=== PATIENT | female | born 2005 | race Two or more races ===

== ENCOUNTER 2024-05-22 03:03 | Emergency (ER) | payer MEDICAID, OTHER ==
[~2024-05-22] VITALS: Ht 149.9 cm; Wt 71.2 kg
[2024-05-22 04:15] VITALS: BP 124/77; PULSE 86; RESP 18; TEMP 98.3; O2SAT 100
[2024-05-22] MEDS ORDERED: PER60TP TOP (04:19)
--- NOTE | 2024-05-22 04:19 | ED.PDOC ---
History of Present Illness(SKN HPI Comments 19 year old female presents to ER with complaints of rash x 1 day. Patient reports she started developing a red itchy rash to lower posterior scalp one day ago. Notes she was around a patient at work 2 days ago who tested positive for scabies but reports she was wearing proper PPE at that time. Denies any pain and denies use of medications for current symptoms. 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 Pertinent MACHINE OPERATOR HELPER History Family History Family History: Unknown Social History Smoker: Non-Smoker Alcohol: Denies ETOH Use Drugs: Denies Drug Use Lives In: Home Constitutional: denies: chills, diaphoresis, fatigue, fever, malaise, sweats, weakness, others EENTM: denies: blurred vision, double vision, ear bleeding, ear discharge, ear drainage, ear pain, ear ringing, eye pain, eye redness, hearing loss, mouth pain, mouth swelling, nasal discharge, nose bleeding, nose congestion, nose pain, photophobia, tearing, throat pain, throat swelling, voice changes, others Respiratory: denies: cough, hemoptysis, orthopnea, SOB at rest, shortness of breath, SOB with excertion, stridor, wheezing, others Cardiovascular: denies: chest pain, dizzy spells, diaphoresis, Dyspnea on exertion, edema, irregular heart beat, left arm pain, lightheadedness, palpitations, PND, syncope, others Gastrointestinal: denies: abdomen distended, abdominal pain, blood streaked bowels, constipated, diarrhea, dysphagia, difficulty swallowing, hematemesis, melena, nausea, poor appetite, poor fluid intake, rectal bleeding, rectal pain, vomiting, others Genitourinary: denies: abnormal vagina bleeding, burning, dyspareunia, dysuria, flank pain, frequency, hematuria, incontinence, pain, , vagina dis charge, urgency, others Neurological: denies: dizziness, fainting, headache, left sided numbness, left sided weakness, numbness, paresthesia, pre-existing deficit, right sided numbness, right sided weakness, seizure, speech problems, tingling, tremors, weakness, others Musculoskeletal: denies: back pain, gout, joint pain, joint swelling, muscle pain, muscle stiffness, neck pain, others Integumetry: reports: others ( STATED IN HPI) Allergic/Immunocompromised: denies: Difficulty Healing, Frequent Infections, Hives, Itching, others Hematologic/Lymphatic: denies: anemia, blood clots, easy bleeding, easy bruising, swollen glands, others Endocrine: denies: excessive hunger, excessive sweating, excessive thirst, excessive urination, flushing, intolerance to cold, intolerance to heat, unexplained weight gain, unexplained weight loss, others Psychiatric: denies: anxiety, bipolar disorder, depression, hopeless, panic disorder, schizophrenia, sleepless, suicidal, others Physical Exam General Appearance: No Apparent Distress, Obese HEENT: PERRL/EOMI Neck: Full Range of Motion, Non-Tender, Normal Respiratory: Chest Non-Tender, Lungs Clear, No Accessory Muscle Use, No Respiratory Distress, Normal Breath Sounds Cardiovascular: No Murmur, No Gallop, Regular Rate/Rhythm Breast Exam: Deferred Gastrointestinal: NOT DONE Genitalia: Deferred Pelvic: Deferred Rectal: Deferred Extremities: Normal capillary refill, Normal range of motion Neurologic: Alert, oncology account specialist II-XII nml as Tested, No Motor Deficits, Normal Affect, Normal Mood, No Sensory Deficits Cerebellar Function: Normal Reflexes: Normal Skin: Dry, Warm, Other (MILD INFLAMMATION/ERYTHEMA NOTED TO RIGHT LOWER EARLIER SCALP. NO CRUSTING/PAPULES/PUSTULES/SCALING/LINEAR BURROWS/DRAINAGE NOTED) Lymphatic: No Adenopathy Was a procedure done? Was a procedure done?: No Sedation Sedation?: No Differential Diagnosis (INTG) Differential Diagnosis: Abrasion Differential Diagnosis: Other (IMPETIGO, ATOPIC DERMATITIS, INSECT BITE, LICE, SCABIES) X-Ray, Labs, Meds, VS Vital Signs Date Time Temp Pulse Resp B/P (MAP) Pulse Ox O2 Delivery O2 Flow Rate FiO2 05/22/24 04:15 86 18 100 Room Air 05/22/24 04:15 98.3 86 18 124/77 (93) 100 98.3 05/22/24 03:35 98.3 86 18 124/77 (93) 100 PERMETHRIN ORDERED. PATIENT EDUCATED ON PROPER USE/DOSAGE ADVISED TO FOLLOW UP WITH PCP AND CAN FILLING MACHINE OPERATOR IN 1-2 DAYS PATIENT VERBALIZED UNDERSTANDING AND AGREEABLE WITH CURRENT PLAN OF CARE ADVISED TO RETURN TO ER IMMEDIATELY IF SYMPTOMS WORSEN Time of 1ST Reevaluation: 03:54 Reevaluation 1ST: N/A Patient Education/Counseling: Diagnosis, Treatment, Prognosis, Need For Follow Up Family Education/Counseling: No Family Present Departure 1 Departure Time of Disposition: 04:14 Impression: Primary Impression: Exposure to scabies Disposition: 01 HOME / SELF CARE / HOMELESS Condition: Stable e-Prescriptions Permethrin (Elimite) 5 % Cre 1 APPLIC TOP ONCE, #1 CRE 0 Refills Prov: MIKE GREENBERG 05/22/24 Discharged With: Self Critical Care Note Critical Care Time?: No Stability Stability form required: No Heart Score Heart Score: Heart Score Response (Comments) Value History N/A 0 EKG N/A 0 Age N/A 0 Risk Factors N/A 0 Troponin N/A 0 Total 0 MIKE GREENBERG May 22, 2024 04:19
[2024-05-22] MEDS: PERMETHRIN 5 % TOPICAL CREAM 60GM TOP ONE (04:39)
== END 2024-05-22 04:37 | disposition home or self-care (01) ==
LOC: ER 03:03 → EEVIPCON 03:03 → ER 04:37
DX: B86 Scabies (principal); Z88.0 Allergy status to penicillin

== ENCOUNTER 2024-10-05 03:12 | Emergency (ER) | payer BC, OTHER ==
[~2024-10-05] VITALS: Ht 147.3 cm; Wt 70.5 kg
[~2024-10-05 03:12] MED LIST: PER60TP TOP
--- NOTE | 2024-10-05 03:41 | ED.PDOC ---
HPI Comments 19-year-old female who came to ER for chest pains. Patient denies any medical problems. For the past week she has been having intermittent episodes of diffuse chest pains, intermittent, pressure type, nonradiating, associated with nausea, dizziness, and shortness of breath. Patient was seen at urgent care 3 days ago, diagnosed with anxiety. However persistence of chest pains prompted patient come to the ER Chief Complaint: Chest Pain Time Seen by MD: 03:39 Reviewed Notes: Nurses Notes Allergies: Coded Allergies: Penicillins (Verified Allergy, Unknown, 10/05/24) Home Meds Active Scripts Cephalexin Monohydrate (Cephalexin) 500 Mg Cap, 1 CAP PO QID for 10 Days, #40 CAP Prov:JUAN BARNETT MD 10/05/24 Hydroxyzine HCl (Hydroxyzine Hydrochloride) 50 Mg Tab, 50 MG PO Q6HP PRN, #30 TAB prn anxiety Prov:JUAN BARNETT MD 10/05/24 Ibuprofen Micronized (Ibuprofen) 600 Mg Tab, 600 MG PO Q6HP PRN, #30 TAB Prov:JUAN BARNETT MD 10/05/24 Information Source: Patient Mode of Arrival: Ambulatory Severity: Moderate Timing: Days Duration: Intermittent Prehospital treatment: None Location: Chest (R), Chest (L) Radiation: No Radiation Quality: Pressure Onset: With Light Exertion Cardiac Risk Factors: None PE Risk Factors: None History of: None Associated Signs and Symptoms: SOB, Other (Dizziness) Past Medical History PAST MEDICAL HISTORY: Denies Surgical History: HAND COLLATOR History: Denies all HAND COLLATOR Hx Family History Family History: Reviewed,noncontributory to illness Social History Smoker: Non-Smoker Alcohol: Denies ETOH Use Drugs: Denies Drug Use Lives In: Home Constitutional: denies: chills, diaphoresis, fatigue, fever, malaise, sweats, weakness, others EENTM: denies: blurred vision, double vision, ear bleeding, ear discharge, ear drainage, ear pain, ear ringing, eye pain, eye redness, hearing loss, mouth pain, mouth swelling, nasal discharge, nose bleeding, nose congestion, nose pain, photophobia, tearing, throat pain, throat swelling, voice changes, others Respiratory: reports: SOB at rest, shortness of breath; denies: cough, hemoptysis, orthopnea, SOB with excertion, stridor, wheezing, others Cardiovascular: reports: chest pain, dizzy spells; denies: diaphoresis, Dyspnea on exertion, edema, irregular heart beat, left arm pain, lightheadedness, palpitations, PND, syncope, others Gastrointestinal: denies: abdomen distended, abdominal pain, blood streaked bowels, constipated, diarrhea, dysphagia, difficulty swallowing, hematemesis, melena, nausea, poor appetite, poor fluid intake, rectal bleeding, rectal pain, vomiting, others Genitourinary: denies: abnormal vagina bleeding, burning, dyspareunia, dysuria, flank pain, frequency, hematuria, incontinence, pain, , vagina discharge, urgency, others Neurological: denies: dizziness, fainting, headache, left sided numbness, left sided weakness, numbness, paresthesia, pre-existing deficit, right sided numbness, right sided weakness, seizure, speech problems, tingling, tremors, weakness, others Musculoskeletal: denies: back pain, gout, joint pain, joint swelling, muscle pain, muscle stiffness, neck pain, others Integumetry: denies: bruises, change in color, change in hair/nails, dryness, laceration, lesions, lumps, rash, wounds, others Allergic/Immunocompromised: denies: Difficulty Healing, Frequent Infections, Hives, Itching, others Hematologic/Lymphatic: denies: anemia, blood clots, easy bleeding, easy bruising, swollen glands, others Endocrine: denies: excessive hunger, excessive sweating, excessive thirst, excessive urination, flushing, intolerance to cold, intolerance to heat, unexplained weight gain, unexplained weight loss, others Psychiatric: denies: anxiety, bipolar disorder, depression, hopeless, panic disorder, schizophrenia, sleepless, suicidal, others Physical Exam General Appearance: No Apparent Distress HEENT: Other (Pupils and face symmetric. Moist mucous membranes.) Neck: Full Range of Motion, Normal Inspection Respiratory: Lungs Clear, No Accessory Muscle Use, No Respiratory Distress, No rmal Breath Sounds Cardiovascular: No Edema, No JVD, Tachycardia Breast Exam: Deferred Gastrointestinal: Non Tender, Soft Genitalia: Deferred Pelvic: Deferred Rectal: Deferred Extremities: Normal inspection, Normal range of motion, Non-tender, No pedal edema Neurologic: Alert (Oriented x4), Normal Affect, Other (Ambulatory) Cerebellar Function: NOT DONE Reflexes: NOT DONE Skin: Dry, Normal Color, Warm Lymphatic: NOT DONE EKG EKG : Pulse Rate (adult): 121 [place]: LAD Cardiac Rhythm: ST Hypertrophy: LAE Comments Sinus tach, rate 121, normal intervals, borderline left axis deviation, normal QRS, nonspecific T change. Was a procedure done? Was a procedure done?: No CP Differential Dx Differential Diagnosis: Angina, Anxiety / Panic Attack, [place], Pulmonary Embolus Differential Diagnosis: CHF Differential Diagnosis: Angina, Chest Wall Pain, Costochondritis, Esophageal reflux/spasm, Gastritis, Myocardial Infarction, Pericarditis, Pneumonia X-Ray, Labs, Meds, VS Vital Signs Date Time Temp Pulse Resp B/P (MAP) Pulse Ox O2 Delivery O2 Flow Rate FiO2 10/05/24 04:13 Room Air* 0 21 10/05/24 04:12 98.3 107 16 120/80 (93) 99 98.3 10/05/24 03:41 121 10/05/24 03:29 98.4 107 16 121/76 (91) 96 98.4 Lab Test 10/05/24 04:20 10/05/24 04:01 10/05/24 03:17 10/05/24 00:31 Range/Units Urine Color Yellow Yellow Urine Clarity Clear Clear Urine pH 5.5 5.0-9.0 Urine Specific [place] 1.031 1.001-1.035 Urine Protein Negative Negative Urine Ketones 2+ H Negative Urine Blood Trace H Negative /uL Urine Nitrite Negative Negative Urine Bilirubin Negative Negative Urine Urobilinogen Normal Negative mg/dL Urine Leukocyte Esterase Negative Negative /uL Urine RBC 3 0 - 4 /hpf Urine Microscopic WBC 2 0-5 /HPF Urine Squamous Epithelial Cells Few <5 /hpf Urine Bacteria Few H None Seen /hpf Urine Mucus Few None Seen Urine Glucose Normal Normal mg/dL Urine Test Negative Negative Troponin I High Sensitivity < 3 L < 3 L </=34 ng/L White Blood Count 11.8 H 4.4-10.8 10^3/uL Red Blood Count 4.88 4.0-5.20 10^6/uL Hemoglobin 14.1 12.2-16.2 g/dL Hematocrit 41.9 36.0-46.0 % Mean Corpuscular Volume 86.0 80.0-100.0 fL Mean Corpuscular Hemoglobin 29.0 28.0-32.0 pg Mean Corpuscular Hemoglobin Concent 33.7 32.0-36.0 g/dL Red Cell Distribution Width 13.2 11.8-14.3 % Platelet Count 372 140-450 10^3/uL Mean Platelet Volume 7.5 6.9-10.8 fL Neutrophils (%) (Auto) 61.2 37.0-80.0 % Lymphocytes (%) (Auto) 30.9 10.0-50.0 % Monocytes (%) (Auto) 5.9 0.0-12.0 % Eosinophils (%) (Auto) 1.7 0.0-7.0 % Basophils (%) (Auto) 0.3 0.0-2.0 % Neutrophils # (Auto) 7.2 1.6-8.6 10 ^3/uL Lymphocytes # (Auto) 3.6 0.4-5.4 10 ^3/uL Monocytes # (Auto) 0.7 0-1.3 10 ^3/uL Eosinophils # (Auto) 0.2 0-0.8 10 ^3/uL Basophils # (Auto) 0 0-0.2 10 ^3/uL Nucleated Red Blood Cells 0.1 % Sodium Level 139 136-145 mmol/L Potassium Level 3.8 3.5-5.1 mmol/L Chloride Level 102 98-107 mmol/L Carbon Dioxide Level 26 20-31 mmol/L Anion Gap 11 5-15 Blood Urea Nitrogen 11 9-23 mg/dL Creatinine 0.75 0.550-1.02 mg/dL Glomerular Filtration Rate Calc 116 >90 mL/min BUN/Creatinine Ratio 14.7 10.0-20.0 Serum Glucose 105 74-106 mg/dL Calcium Level 10.9 H 8.7-10.4 mg/dL B-Type Natriuretic Peptide 2.62 0-100 pg/mL Prothrombin Time 10.7 9.3-11.8 sec Prothrombin Time INR 1.01 0.9-1.15 Activated Partial Thromboplast Time 29.9 24.5-34.5 SEC D-Dimer, Quantitative < 0.19 0.0-0.49 mg/L FEU Current Medications Medications (Trade) Dose Ordered Sig/Piter Route Start Time Stop Time Status Last Admin Sodium Chloride 1,000 ml @ 1,000 mls/hr Q1H ONCE IV 6/27/25 03:45 10/05/24 04:44 DC 10/05/24 04:09 Lorazepam (Ativan Tablet) 0.5 mg ONCE ONCE PO 10/05/24 04:45 10/05/24 04:46 DC 10/05/24 04:50 Ketorolac Tromethamine (Toradol Injection) 30 mg ONCE ONCE IV 10/05/24 04:45 10/05/24 04:46 DC 10/05/24 04:50 EXAM: XY CHEST PORTABLE Indication: cp Technique: Single frontal view of the chest was obtained Comparison: None FINDINGS: Lines and Tubes: None Lungs: No focal consolidation. Pleura: No effusion. No pneumothorax. Cardiomediastinal contours: Unremarkable Bones: No acute osseous abnormality. IMPRESSION: No acute cardiopulmonary disease. X-Ray, Labs, Meds, VS Comment 19-year-old female with no significant past medical history complaining of chest pain Vitals remarkable for heart rate 107 Exam remarkable for tachycardia Rhythm strip independently interpreted by me: Sinus tach, rate 121, no ectopy. Chest x-ray unremarkable CBC, metabolic panel, D-dimer, BNP and 2 serial troponins unremarkable. UA abnormal consistent with possible UTI Patient treated with the following in the ED: 1 L 0.9 normal saline IV bolus, Toradol 30 mg IV, Ativan 0.5 mg p.o. , Rocephin 1 g IV On re-evaluation, patient states symptoms have improved. Vitals were stable, an d tachycardia has resolved. Hospitalization was considered, however patient had rapid improvement of symptoms with treatment in the ED, and I no longer feel hospitalization is necessary. Patient now appears stable for discharge with close outpatient follo w-up with her primary physician. Rx ibuprofen, hydroxyzine, Keflex Time of 1ST Reevaluation: 03:36 Reevaluation 1ST: Unchanged Patient Education/Counseling: Diagnosis, Treatment Family Education/Counseling: Need For Follow Up SEPSIS Sepsis Screen Physician Orders Electrocardigram (10/05/24 03:14) Troponin-I Hs (10/05/24 06:14) Chest Portable (10/05/24 03:45) Vital Signs Date Time Temp Pulse Resp B/P (MAP) Pulse Ox O2 Delivery O2 Flow Rate FiO2 10/05/24 04:13 Room Air* 0 21 10/05/24 04:12 98.3 107 16 120/80 (93) 99 98.3 10/05/24 03:41 121 10/05/24 03:29 98.4 107 16 121/76 (91) 96 98.4 Laboratory Tests Test 10/05/24 03:17 White Blood Count 11.8 10^3/uL (4.4-10.8) H Medications Medications Dose Ordered Sig/Piter Route Start Time Stop Time Status Last Admin Dose Admin Ketorolac Tromethamine 30 mg ONCE ONCE IV 10/05/24 04:45 10/05/24 04:46 DC 10/05/24 04:50 Lorazepam 0.5 mg ONCE ONCE PO 10/05/24 04:45 10/05/24 04:46 DC 10/05/24 04:50 Sodium Chloride 1,000 ml @ 1,000 mls/hr Q1H ONCE IV 10/05/24 03:45 10/05/24 04:44 DC 10/05/24 04:09 Departure 1 Departure Time of Disposition: 05:26 Impression: Primary Impression: Chest pain with low risk for cardiac etiology Additional Impression: UTI (urinary tract infection) Disposition: HOME / SELF CARE / HOMELESS Condition: Stable Additional Instructions: Your blood tests, including screening test for heart attack, heart failure and blood clots, were unremarkable. Your urine test was abnormal, possibly reflecting a urinary tract infection. Your chest x-ray was normal. I have prescribed medication for your chest pain symptoms and antibiotics for your UTI. Follow-up with your primary doctor in 1-2 days for further evaluation of your chest pain. e-Prescriptions Cephalexin Monohydrate (Cephalexin) 500 Mg Cap 1 CAP PO QID for 10 Days, #40 CAP Prov: JUAN BARNETT MD 10/05/24 Hydroxyzine HCl (Hydroxyzine Hydrochloride) 50 Mg Tab 50 MG PO Q6HP PRN, #30 TAB prn anxiety Prov: JUAN BARNETT MD 10/05/24 Ibuprofen Micronized (Ibuprofen) 600 Mg Tab 600 MG PO Q6HP PRN, #30 TAB Prov: JUAN BARNETT MD 10/05/24 Discharged With: Friend Critical Care Note Critical Care Time?: No Stability Stability form required: No Heart Score Heart Score: Heart Score Response (Comments) Value History Slightly Suspicious 0 EKG Repolarization Disturb 1 Age <45 0 Risk Factors No known risk factors 0 Troponin Normal limit 0 Total 1 I personally scribed for JUAN BARNETT MD ([facility]) on 10/05/24 at 03:41. Electronically submitted by Abdias Greer ([facility]). I personally scribed for JUAN BARNETT MD ([facility]) on 10/05/24 at 05:10. Electronically submitted by Abdias Greer ([facility]). JUAN BARNETT MD Oct 05, 2024 03:41
[2024-10-05] MEDS: SODIUM CHLORIDE 0.9% 1,000 ML IV ONE (04:09)
[2024-10-05 04:12] VITALS: BP 120/80; PULSE 107; RESP 16; TEMP 98.3; O2SAT 99
[2024-10-05 04:12] LABS: Basophils # (auto) 0 10 ^3/uL (0-0.2); Basophils % (auto) 0.3 % (0.0-2.0); Eosinophils # (auto) 0.2 10 ^3/uL (0-0.8); Eosinophils % (auto) 1.7 % (0.0-7.0); Hematocrit 41.9 % (36.0-46.0); Hemoglobin 14.1 g/dL (12.2-16.2); Lymphocytes # (auto) 3.6 10 ^3/uL (0.4-5.4); Lymphocytes % (auto) 30.9 % (10.0-50.0); Mean Corpuscular Hgb Conc. 33.7 g/dL (32.0-36.0); Monocytes # (auto) 0.7 10 ^3/uL (0-1.3); Monocytes % (auto) 5.9 % (0.0-12.0); Neutrophils # (auto) 7.2 10 ^3/uL (1.6-8.6); Neutrophils % (auto) 61.2 % (37.0-80.0); Nucleated Red Blood Cells % 0.1 %; Platelet Count (auto) 372 10^3/uL (140-450); Red Blood Cells 4.88 10^6/uL (4.0-5.20); Red Cell Distribution Width 13.2 % (11.8-14.3); White Blood Cell 11.8 10^3/uL (4.4-10.8)
[2024-10-05 04:24] LABS: Chloride 102 mmol/L (98-107); Potassium 3.8 mmol/L (3.5-5.1); Sodium 139 mmol/L (136-145)
[2024-10-05 04:25] LABS: Anion Gap 11 (5-15); Carbon Dioxide 26 mmol/L (20-31)
[2024-10-05 04:27] LABS: Calcium 10.9 mg/dL (8.7-10.4)
[2024-10-05 04:30] LABS: BUN/Creatinine Ratio 14.7 (10.0-20.0); Blood Urea Nitrogen 11 mg/dL (9-23); Glucose 105 mg/dL (74-106)
[2024-10-05 04:38] LABS: INR 1.01 (0.9-1.15); Partial Thromboplastin Time 29.9 SEC (24.5-34.5); Prothrombin Time 10.7 sec (9.3-11.8)
[2024-10-05] MEDS ORDERED: KETOROLAC TROMETH 60MG/2ML VIAL IM ONE (04:45)
[2024-10-05] MEDS: KETOROLAC TROMETH 30 MG/ML 1ML VIAL IV ONE (04:50)
[2024-10-05] MEDS: LORazepam 0.5 MG TAB PO ONE (04:50)
[2024-10-05 04:53] LABS: Urine Bacteria FEW /hpf (None Seen); Urine Blood TRACE /uL (Negative); Urine Clarity Clear (Clear); Urine Color Yellow (Yellow); Urine Mucus FEW (None Seen); Urine Protein, UAD Negative (Negative); Urine Specific Gravity 1.031 (1.001-1.035); Urine Squamous Epithelial Cell FEW /hpf (<5); Urine Urobilinogen Normal (Negative); Urine WBC 2 /HPF (0-5); Urine pH 5.5 (5.0-9.0)
[2024-10-05] MEDS ORDERED: IBUP1TAB5 PO (04:55)
[2024-10-05] MEDS ORDERED: HYDR50TA32 PO (04:55)
--- NOTE | 2024-10-05 04:58 | DVH ---
EXAM: XY CHEST PORTABLE Indication: cp Technique: Single frontal view of the chest was obtained Comparison: None FINDINGS: Lines and Tubes: None Lungs: No focal consolidation. Pleura: No effusion. No pneumothorax. Cardiomediastinal contours: Unremarkable Bones: No acute osseous abnormality. IMPRESSION: No acute cardiopulmonary disease.
[2024-10-05] MEDS ORDERED: CEPH500C PO (05:27)
[2024-10-05] MEDS ORDERED: cefTRIAXone 1GM/50ML D5W 50 ML IV ONE (05:30)
--- NOTE | 2024-10-06 11:04 | ECG ---
[facility] Test Date: 2024-10-05 Test Time: 03:19:05 Pat Name: MAGDALENA QUINONES Department: ER Room: Gender: F Vegetable Grower: : 2005 Requested By: JUAN LATHAM Order Number: [id number] Reading MD: Ronni Yu Measurements Intervals [place] Rate: 121 P: 64 MI: 171 QRS: -26 QRSD: 83 T: -5 QT: 327 QTc: 464 Interpretive Statements Sinus tachycardia Probable left atrial enlargement Borderline left axis deviation Borderline T abnormalities, diffuse leads Electronically Signed On 10-06-2024 20:11:30 PDT by Ronni Yu Please click the below link to view image of tracing.
== END 2024-10-05 05:40 | disposition home or self-care (01) ==
LOC: MERGE 03:12 → ER 03:12
DX: N39.0 Urinary tract infection, site not specified (principal); R07.89 Other chest pain; Z98.890 Other specified postprocedural states; Z88.0 Allergy status to penicillin; Z79.899 Other long term (current) drug therapy
CPT/HCPCS: 36415; 71045; 80048; 81001; 81025; 83880; 84484; 85025; 85379; 85610; 85730; 93005; 96361; 96374; 99285; J1885; J7030

== ENCOUNTER 2024-10-31 15:17 | Outpatient (CLI) | payer BC ==
[~2024-10-31 15:17] MED LIST changes: +CEPH500C PO; +HYDR50TA32 PO; +IBUP1TAB5 PO
[2024-10-31 15:31] LABS: Urine Protein, UAD Negative (Negative)
[2024-11-01 22:07] LABS: Chlamydia Trachomatis, NAA Negative (Negative); Neisseria gonorrhoeae, NAA Negative (Negative)
== END 2024-10-31 17:00 | disposition home or self-care (01) ==
LOC: LAB 15:17
DX: N39.0 Urinary tract infection, site not specified (principal)
CPT/HCPCS: 81001; 87086

== ENCOUNTER 2024-12-20 06:37 | Emergency (ER) | payer SELFPAY ==
[~2024-12-20] VITALS: Ht 147.3 cm; Wt 72.1 kg
[2024-12-20] MEDS ORDERED: TRIA0.02 TOP (07:40)
[2024-12-20] MEDS ORDERED: CEPH500C PO (07:40)
--- NOTE | 2024-12-20 07:41 | ED.PDOC ---
History of Present Illness(SKN HPI Comments A 19 YEAR OLD FEMALE PRESENTS TO THE ED WITH COMPLAINT OF INSECT BITE OF RIGHT FOREARM. PATIENT STATES SHE HAS BEEN DENIED [place] ON HER RIGHT FOREARM AND IS NOW EXPERIENCING REDNESS AND PAIN TO THE AREA. PATIENT DENIES FEVER, CHILLS, SHORTNESS OF BREATH, CHEST PAIN, ABDOMINAL PAIN, NAUSEA, VOMITING, HEADACHE, OR OTHER COMPLAINTS. NO OTHER SYMPTOMS OR MODIFYING FACTORS AT THIS TIME. PATIENT IS ALERT, ORIENTED X 4, AND HAS STEADY GAIT. Chief Complaint: Insect Bite Time Seen by MD: 07:19 Primary Care Provider: UNKNOWN History of Present Illness: Nurses Notes, Medications, Allergies Allergies: Coded Allergies: Penicillins (Verified Allergy, Unknown, 05/22/24) Home Meds Active Scripts Triamcinolone Acetonide (Triamcinolone Acetonide) 0.025 % Cre, 1 APPLIC TOP BID, #30 GRAMS Prov:BRITTANY WARD 12/20/24 Cephalexin Monohydrate (Cephalexin) 500 Mg Cap, 1 CAP PO QID, #32 CAP Prov:BRITTANY WARD 12/20/24 Cephalexin Monohydrate (Cephalexin) 500 Mg Cap, 1 CAP PO QID for 10 Days, #40 CAP Prov:JUAN BARNETT MD 10/05/24 Hydroxyzine HCl (Hydroxyzine Hydrochloride) 50 Mg Tab, 50 MG PO Q6HP PRN, #30 TAB prn anxiety Prov:JUAN BARNETT MD 10/05/24 Ibuprofen Micronized (Ibuprofen) 600 Mg Tab, 600 MG PO Q6HP PRN, #30 TAB Prov:JUAN BARNETT MD 10/05/24 Permethrin (Elimite) 5 % Cre, 1 APPLIC TOP ONCE, #1 CRE 0 Refills Prov:MIKE GREENBERG 05/22/24 Information Source: Patient Mode of Arrival: Ambulatory Severity: Mild, Moderate Timing: Days Duration: Since onset, Days Prehospital treatment: None Location: Arm (RIGHT FOREARM) Mechanism: Insect Developed: Rash Occurence: Outdoors Object: None Condition of Object: None Retained Foreign Body: No Wound Type: Other (INSECT BITE) Immunization Status of Animal: NA Tetanus: UTD History of: None Associated Signs and Symptoms: Redness, Swelling, Pain Past Medical History PAST MEDICAL HISTORY: Denies Surgical History: Denies all surgeries TRANSPORTATION SUPERVISOR History: No Pertinent TRANSPORTATION SUPERVISOR History Family History Family History: Reviewed,noncontributory to illness Social History Smoker: Non-Smoker Alcohol: Denies ETOH Use Drugs: Denies Drug Use Lives In: Home Constitutional: denies: chills, diaphoresis, fatigue, fever, malaise, sweats, weakness, others EENTM: denies: blurred vision, double vision, ear bleeding, ear discharge, ear drainage, ear pain, ear ringing, eye pain, eye redness, hearing loss, mouth pain, mouth swelling, nasal discharge, nose bleeding, nose congestion, nose pain, photophobia, tearing, throat pain, throat swelling, voice changes, others Respiratory: denies: cough, hemoptysis, orthopnea, SOB at rest, shortness of breath, SOB with excertion, stridor, wheezing, others Cardiovascular: denies: chest pain, dizzy spells, diaphoresis, Dyspnea on exertion, edema, irregular heart beat, left arm pain, lightheadedness, p alpitations, PND, syncope, others Gastrointestinal: denies: abdomen distended, abdominal pain, blood streaked bowels, constipated, diarrhea, dysphagia, difficulty swallowing, hematemesis, melena, nausea, poor appetite, poor fluid intake, rectal bleeding, rectal pain, vomiting, others Genitourinary: denies: abnormal vagina bleeding, burning, dyspareunia, dysuria, flank pain, frequency, hematuria, incontinence, pain, , vagina discharge, urgency, others Neurological: denies: dizziness, fainting, headache, left sided numbness, left sided weakness, numbness, paresthesia, pre-existing deficit, right sided numbness, right sided weakness, seizure, speech problems, tingling, tremors, weakness, others Musculoskeletal: denies: back pain, gout, joint pain, joint swelling, muscle pain, muscle stiffness, neck pain, others Integumetry: reports: lumps, rash, others (INSECT BITE OF RIGHT FOREARM); denies: bruises, change in color, change in hair/nails, dryness, laceration, lesions, wounds Allergic/Immunocompromised: denies: Difficulty Healing, Frequent Infections, Hives, Itching, others Hematologic/Lymphatic: denies: anemia, blood clots, easy bleeding, easy bruising, swollen glands, others Endocrine: denies: excessive hunger, excessive sweating, excessive thirst, excessive urination, flushing, intolerance to cold, intolerance to heat, unexplained weight gain, unexplained weight loss, others Psychiatric: denies: anxiety, bipolar disorder, depression, hopeless, panic disorder, schizophrenia, sleepless, suicidal, others All Other Systems: Reviewed and Negative Physical Exam General Appearance: No Apparent Distress, Normal HEENT: Normal ENT Inspection, PERRL/EOMI, Pharynx Normal, TMs Normal Neck: Full Range of Motion, Non-Tender, Normal, Normal Inspection Respiratory: Chest Non-Tender, Lungs Clear, No Accessory Muscle Use, No Respiratory Distress, Normal Breath Sounds Cardiovascular: No Edema, No JVD, No Murmur, No Gallop, Normal Peripheral Pulses, Regular Rate/Rhythm Breast Exam: Deferred Gastrointestinal: No Organomegaly, Non Tender, No Pulsatile Mass, Normal Bowel Sounds, Soft Genitalia: Deferred Pelvic: Deferred Rectal: Deferred Extremities: No calf tenderness, Normal capillary refill, Normal range of motion, No pedal edema, Tender (MILD TENDERNESS, REDNESS AND SWELLING ON RIGHT POSTERIOR FOREARM, NO OPEN WOUND SEEN. ) Musculoskeletal : Apperance: Normal Neurologic: Alert, animal laboratory helper II-XII nml as Tested, No Motor Deficits, Normal Affect, Normal Mood, No Sensory Deficits Cerebellar Function: Normal Reflexes: Normal Skin: Dry, Normal Color, Rash (LOCALIZED REDNESS, MILD SWELLING AND HARDNESS ON RIGHT POSTERIOR FOEARM, +BITE KIKE, NO OPEN WOUND SEEN. ), Warm Peripheral Pulses: 2+ carotid (R), 2+ carotid (L), 2+ Radial (R), 2+ Radial (L) Lymphatic: No Adenopathy Was a procedure done? Was a procedure done?: No Differential Diagnosis (INTG) Differential Diagnosis: Abrasion, Cellulitis, Contusion, Insect Envenomation, Puncture Wound Differential Diagnosis: Contact Dermatitis, Impetigo, Intertrigo, Urticaria, N/A Differential Diagnosis: N/A Abscess: N/A Differential Diagnosis: N/A X-Ray, Labs, Meds, VS Vital Signs Date Time Temp Pulse Resp B/P (MAP) Pulse Ox O2 Delivery O2 Flow Rate FiO2 12/20/24 06:41 99.1 100 18 135/79 98 99.1 X-Ray, Labs, Meds, VS Comment EXTERNAL MEDICAL RECORDS REVIEWED: [NONE] INDEPENDENT HISTORIANS: [NONE] SOCIAL DETERMINANTS OF HEALTH: [NONE] LABS ORDERED: NONE REVIEWED AND INTERPRETED RESULTS: NONE IMAGING ORDERED: NONE TREATMENTS ORDERED: NONE PROCEDURES PERFORMED: NONE CRITICAL CARE TIME: NONE I HAVE DISCUSSED THE PATIENT WITH THE ATTENDING PHYSICIAN DR. ORTEGA AND HE AGREES WITH THE PATIENT'S PLAN OF CARE AND DISPOSITION. BASED ON HISTORY OF PRESENT ILLNESS, AND PHYSICAL EXAM, PATIENT WILL BE DISCHARGED HOME. DISCUSSED PLAN FOR DISCHARGE HOME WITH RX [TRIAMCINOLONE CREAM AND KEFLEX]. MEDICATION WARNINGS GIVEN. SHARED DECISION MAKING: DISCUSSED WITH PATIENT THAT THEIR WORKUP WAS NORMAL. PATIENT INSTRUCTED TO FOLLOW UP WITH PRIMARY CARE PROVIDER IN 1-2 DAYS FOR RE- EVALUATION OF SYMPTOMS. PATIENT VERBALIZES UNDERSTANDING TO RETURN TO ED FOR NEW OR WORSENING SYMPTOMS OR IF FOLLOW UP WITH PCP CANNOT BE OBTAINED. PATIENT FEELS COMFORTABLE GOING HOME AT THIS TIME. ALL QUESTIONS ADDRESSED AT TIME OF DISCHARGE. Time of 1ST Reevaluation: 07:46 Reevaluation 1ST: Improved Patient Education/Counseling: Diagnosis, Treatment, Need For Follow Up Family Education/Counseling: Diagnosis, Treatment, Need For Follow Up Medical Screening: No EMC Exist At This Time SEPSIS Sepsis Screen Date sepsis recognized/suspect: Dec 20, 2024 Time Sepsis recognized/suspect: 0641 Recent Procedure: No On Antibiotic Therapy: No Respiratory Rate >20: No Heart Rate >90: No Temp<36 C (96.8 F) or >38.3 C: No SBP <90 or MAP <65 mmHG: No New Acute Mental Status Change: No Is the patient on CPAP, BIPAP,: No Vital Signs Date Time Temp Pulse Resp B/P (MAP) Pulse Ox O2 Delivery O2 Flow Rate FiO2 12/20/24 06:41 99.1 100 18 135/79 98 99.1 Departure 1 Departure Time of Disposition: 07:46 Impression: Primary Impression: Insect bite of right forearm Qualified Codes: S50.861A - Insect bite (nonvenomous) of right forearm, i nitial encounter; W57.XXXA - Bitten or stung by nonvenomous insect and other nonvenomous arthropods, initial encounter Disposition: 01 HOME / SELF CARE / HOMELESS Condition: Stable Additional Instructions: FOLLOW-UP WITH PCP IN 1 TO 2 DAYS. TAKE MEDICATIONS PRESCRIBED. RETURN TO ED FOR ANY NEW OR WORSENING SYMPTOMS. e-Prescriptions Triamcinolone Acetonide (Triamcinolone Acetonide) 0.025 % Cre 1 APPLIC TOP BID, #30 GRAMS Prov: BRITTANY WARD 12/20/24 Cephalexin Monohydrate (Cephalexin) 500 Mg Cap 1 CAP PO QID, #32 CAP Prov: BRITTANY WARD 12/20/24 Discharged With: Self Critical Care Note Critical Care Time?: No Stability Stability form required: No I personally scribed for BRITTANY WARD ([email or web address]) on 12/20/24 at 07:41. Electronically submitted by Tapan Malik ([email or web address]). BRITTANY WARD Dec 20, 2024 07:41
[2024-12-20 07:43] VITALS: BP 135/79; PULSE 100; RESP 18; TEMP 99.1; O2SAT 98
== END 2024-12-20 07:46 | disposition home or self-care (01) ==
LOC: ER 06:37
DX: S50.861A Insect bite (nonvenomous) of right forearm, initial encounter (principal); Z88.0 Allergy status to penicillin; Z79.899 Other long term (current) drug therapy; W57.XXXA Bitten or stung by nonvenomous insect and other nonvenomous arthropods, initial encounter; Y93.89 Activity, other specified; Y92.89 Other specified places as the place of occurrence of the external cause; Y99.8 Other external cause status

== ENCOUNTER 2024-12-24 16:27 | Inpatient (IN) | payer BC ==
[~2024-12-24] VITALS: Ht 147.3 cm; Wt 48.7 kg
[~2024-12-24 16:27] MED LIST changes: +TRIA0.02 TOP
--- NOTE | 2024-12-24 18:09 | ED.PDOC ---
General HPI Comments HPI: 19 year old female presents to the ED with a chief complaint of RT flank pain onset 4 days. Patient is experiencing RT flank pain radiated to RUQ for the past 4 days. Patient was seen in this ED on 11/08/24 for UTI symptoms, US was done, was told she had a 7 cm mass on liver, has not been able to follow up with specialist due to insurance issues. Patient noticed pain has worsen, returned to ED. Denies hematuria, dysuria, fever, chills, nausea, vomiting, diarrhea, dizziness. No other symptoms or modifying factors present at this time. Initial Vitals BP: 140/86 HR: 105 RR: 16 O2: 100% Temp: 98.2 F Past Medical History: liver mass/cyst Past Surgical History: Denies Social History: Denies ETOH, smoking, and drug use. Medications: Denies Allergies: Penicillins HPI: Poor Historian. REVIEW OF SYSTEMS: CONSTITUTIONAL: Denies acute: fever, diaphoresis, chills, generalized weakness. HEAD: Denies acute: headache, photophobia Eyes: Denies acute: Double vision, vision loss, eye pain, eye discharge. EARS: Denies acute: tinnitus, hearing loss, ear discharge, ear pain, THROAT: Denies acute: sore throat, swelling, difficulty swallowing , pain with swallowing, change in voice. NECK: Denies acute: neck pain, neck swelling, stiff neck. HEART: Denies acute : chest pain, palpitations, LUNGS: Denies acute: SOB, wheezing, cough, hemoptysis ABDOMEN: Denies acute: Nausea, Vomiting, diarrhea, melena , hematemesis, hematochezia SKIN: Denies acute: rash, redness, lesions, itchiness. EXTREMITIES: Denies acute: calf pain, numbness, tingling, weakness, denies pain in extremity. Denies acute: Low back pain. Neuro: Denies acute: focal neurological deficit, motor or sensory focal neurological deficit, tremors, seizure like activity, confusion, dizziness, change in mental status, loss of bowel or bladder function, cauda equina like symptoms. : Denies acute: dysuria, hematuria, increase in urinary frequency. PSYCH: Denies acute: hallucination, suicidal ideation, homicidal ideation. FEMALE: Denies acute: abnormal vaginal bleeding, foul odor, unusual discharge. PHYSICAL EXAM: General: -----mild---acute distress, awake and alert. Head: normocephalic, atraumatic. Neck: supple, trachea is midline, no swelling. Throat: Normal phonation. Eyes:, no erythema, no purulent discharge, no proptosis, no icterus. Heart: regular rate, regular rhythm, no significant murmur appreciated. Lungs: no apparent respiratory distress, Able to speak in full sentences. No wheezing, no rhonchi, no crackles. No stridors Clear to auscultation bilaterally. Abdomen: Right mid abdomen and right lower quadrant tender to palpation, non distended, soft, no guarding, no rebound, + bowel sounds. Neuro: Awake, Alert, oriented to name, self, situation, follows commands GCS=15. Speech is normal. Skin: no petechia, no purpura, no cyanosis, non-pale, not jaundice. Lower extremities: --no - Pitting edema no deformity, no focal swelling, no calf TTP. Makes eye contact. moves all four extremities. Face: no apparent facial droop. Right CVA tenderness to percussion Ambulating in the ED independently. ED COURSE: DISCLAIMER: This medical document was created using an electronic medical record system with voice recognition software and computerized dictation system. Although this document has been carefully reviewed, there might still be some phonetic and typographical errors. Occasional wrong-word or "sound-alike" substitutions may have occurred due to the inherent limitations of voice recognition software. These areas are purely typographical due to imperfections of the software programs and do not reflect any compromise in the patient's medical care. Please read the chart carefully and recognize, using context, where these substitutions have occurred. Chief Complaint: Flank Pain Time Seen by MD: 17:45 Primary Care Provider: UNKNOWN Reviewed notes: Medications, Allergies Allergies: Coded Allergies: Penicillins (Verified Allergy, Unknown, 05/22/24) Home Meds Active Scripts Triamcinolone Acetonide (Triamcinolone Acetonide) 0.025 % Cre, 1 APPLIC TOP BID, #30 GRAMS Prov:BRITTANY WARD 12/20/24 Cephalexin Monohydrate (Cephalexin) 500 Mg Cap, 1 CAP PO QID, #32 CAP Prov:BRITTANY WARD 12/20/24 Cephalexin Monohydrate (Cephalexin) 500 Mg Cap, 1 CAP PO QID for 10 Days, #40 CAP Prov:JUAN BARNETT MD 10/05/24 Hydroxyzine HCl (Hydroxyzine Hydrochloride) 50 Mg Tab, 50 MG PO Q6HP PRN, #30 TAB prn anxiety Prov:JUAN BARNETT MD 10/05/24 Ibuprofen Micronized (Ibuprofen) 600 Mg Tab, 600 MG PO Q6HP PRN, #30 TAB Prov:JUAN BARNETT MD 10/05/24 Permethrin (Elimite) 5 % Cre, 1 APPLIC TOP ONCE, #1 CRE 0 Refills Prov:MIKE GREENBERG 05/22/24 Information Source: Patient Mode of Arrival: Ambulatory Severity: Moderate Timing: Days Duration: Since onset Prehospital treatment: None Onset: Spontaneous Symptoms: Other History of: Other Location: Abdomen, (R) Flank Modifying factors: None associated signs and symptoms: Abdominal Pain, Flank Pain Past Medical History PAST MEDICAL HISTORY: Denies Surgical History: Denies all surgeries PHOTOGRAPHIC ENLARGER OPERATOR History: No Pertinent PHOTOGRAPHIC ENLARGER OPERATOR History Family History Family History: Reviewed,noncontributory to illness Social History Smoker: Non-Smoker Alcohol: Denies ETOH Use Drugs: Denies Drug Use Lives In: Home Was a procedure done? Was a procedure done?: No Differential Diagnosis Kidney stone (Female): Other (Flank Pain;DDX include Nephrolethiasis, obstr uctive uropathy, kidney cancer, renal infarct, intraabdominal neoplasm, lower lobe pneumonia, retroperitoneal hemorrhage, pancreatitis, aneurysm, dissection, musculoskeletal, rib contusion/trauma, hematoma, PYLONEPHRITIS, muscle strain, spinal disease. IN A FEMALE) X-Ray, Labs, Meds, VS Vital Signs Date Time Temp Pulse Resp B/P (MAP) Pulse Ox O2 Delivery O2 Flow Rate FiO2 12/24/24 16:30 98.2 105 16 140/86 100 98.2 Lab Test 12/24/24 18:35 12/24/24 18:07 Range/Units White Blood Count 11.6 H 4.4-10.8 10^3/uL Red Blood Count 4.94 4.0-5.20 10^6/uL Hemoglobin 14.7 12.2-16.2 g/dL Hematocrit 42.6 36.0-46.0 % Mean Corpuscular Volume 86.1 80.0-100.0 fL Mean Corpuscular Hemoglobin 29.8 28.0-32.0 pg Mean Corpuscular Hemoglobin Concent 34.6 32.0-36.0 g/dL Red Cell Distribution Width 13.1 11.8-14.3 % Platelet Count 459 H 140-450 10^3/uL Mean Platelet Volume 7.1 6.9-10.8 fL Neutrophils (%) (Auto) 75.0 37.0-80.0 % Lymphocytes (%) (Auto) 18.8 10.0-50.0 % Monocytes (%) (Auto) 4.4 0.0-12.0 % Eosinophils (%) (Auto) 1.4 0.0-7.0 % Basophils (%) (Auto) 0.4 0.0-2.0 % Neutrophils # (Auto) 8.7 H 1.6-8.6 10 ^3/uL Lymphocytes # (Auto) 2.2 0.4-5.4 10 ^3/uL Monocytes # (Auto) 0.5 0-1.3 10 ^3/uL Eosinophils # (Auto) 0.2 0-0.8 10 ^3/uL Basophils # (Auto) 0.1 0-0.2 10 ^3/uL Nucleated Red Blood Cells 0.0 % Sodium Level 140 136-145 mmol/L Potassium Level 4.1 3.5-5.1 mmol/L Chloride Level 106 98-107 mmol/L Carbon Dioxide Level 25 20-31 mmol/L Anion Gap 9 5-15 Blood Urea Nitrogen 8 L 9-23 mg/dL Creatinine 0.72 0.550-1.02 mg/dL Glomerular Filtration Rate Calc 122 >90 mL/min BUN/Creatinine Ratio 11.1 10.0-20.0 Serum Glucose 91 74-106 mg/dL Lactic Acid Level 1.0 0.4-2.0 mmol/L Calcium Level 9.6 8.7-10.4 mg/dL Total Bilirubin 0.3 0.2-1.0 mg/dL Aspartate Amino Transferase (AST) 33 13-40 U/L Alanine Aminotransferase (ALT) 41 H 7-40 U/L Alkaline Phosphatase 80 46-116 U/L Total Protein 8.3 H 5.7-8.2 g/dL Albumin 5.1 H 3.2-4.8 g/dL Lipase 36 12-53 U/L Urine Color Light-yellow Yellow Urine Clarity Clear Clear Urine pH 5.5 5.0-9.0 Urine Specific [place] 1.016 1.001-1.035 Urine Protein Negative Negative Urine Ketones Negative Negative Urine Blood 2+ H Negative /uL Urine Nitrite Negative Negative Urine Bilirubin Negative Negative Urine Urobilinogen Normal Negative mg/dL Urine Leukocyte Esterase Negative Negative /uL Urine RBC 2 0 - 4 /hpf Urine Microscopic WBC 2 0-5 /HPF Urine Squamous Epithelial Cells Few <5 /hpf Urine Bacteria None seen None Seen /hpf Urine Glucose Normal Normal mg/dL Current Medications Medications (Trade) Dose Ordered Sig/Piter Route Start Time Stop Time Status Last Admin Acetaminophen/ Hydrocodone Bitart ([place] 5/325MG Tab) 1 tab ONCE ONCE PO 12/24/24 18:15 12/24/24 18:16 DC 12/24/24 18:52 [place] [id number] Ph: [phone] DIAGNOSTIC IMAGING Diagnostic Imaging Report : [id number] Signed PATIENT: MAGDALENA QUINONES ACCT: [id number] UNIT: [id number] : 2005 LOC: ER ROOM / BED: / AGE / SEX: 19 / F ADM STATUS: REG ER SERVICE 1802 ORDERING PHYSICIAN: MIYA BAKER DO PROCEDURE(s): ABPL - CT AB PEL WO CON-NO ORAL OR IV REASON: R FLANK PAIN ORDER NUMBER(s): [id number], ACCESSION NUMBER(s): [id number] CLINICAL HISTORY: R FLANK PAIN TECHNIQUE: CT of the abdomen and pelvis was performed without IV contrast. This exam was performed according to our departmental dose optimization program. Up-to-date CT equipment and radiation dose reduction techniques are utilized as appropriate. CTDI 9 DLP 467 COMPARISON: None. FINDINGS: Abdomen/Pelvis: The spleen, pancreas, adrenal glands, gallbladder, kidneys, uterus, and bladder are grossly unremarkable. There is scattered hypoattenuation within the liver. The abdominal aorta is normal in course and caliber. There are no significant atherosclerotic calcifications. There is no free intraperitoneal air or fluid. There is no enlarged abdominal pelvic lymph node. There is no bowel wall thickening or dilatation. The appendix is normal. Other: The imaged lower thorax is unremarkable. No acute osseous abnormality is evident. Impression: No acute noncontrast CT abnormality in the abdomen or pelvis. Scattered hypoattenuation within the liver, favor fatty infiltration. Underlying mass lesions are not excluded. Recommend nonemergent liver MRI with and without IV contrast for further evaluation. ATED BY: ARYAN DO MD DICTATED DATE/TIME: 12/24/241903 SIGNED BY: ARYAN DO MD SIGNED DATE/TIME: 12/24/241903 CC: Time of 1ST Reevaluation: 18:15 Reevaluation 1ST: Unchanged Patient Education/Counseling: Diagnosis, Treatment Family Education/Counseling: No Family Present Comments MDM: patient presented with the above HPI.---flank pain/abdominal pain---workup was initiated. patient was found with the above mentioned diagnosis. the following medications were ordered: please refer to order lists of meds and tests obtained by myself Dr. Baker. Patient ED course and VS have been stabilized. Patient has been reassessed in the ED and remained in a stable condition. Pertinent incidental findings were discussed with the patient and/or family. Patient/family voices understanding and is agreeable with plan. Patient has been observed in the ED adequate length of time to insure improvement/stability. Escalation of care considered: Consideration of escalation to observation or admission Patient was ADMITTED to the medicine team for further evaluation and treatment of their presentation. All the reports of any imaging studies that were ordered by myself were reviewed by myself. Departure 1 Departure Time of Disposition: 19:52 Impression: Primary Impression: Liver mass Disposition: ADMITTED INPATIENT Admit to: Tele Condition: Guarded Discharged With: Self Critical Care Note Critical Care Time?: No I personally scribed for MIYA BAKER DO ([email or web address]) on 12/24/24 at 18:09. Electronically submitted by Mariluz Abraham ([email or web address]). MIYA BAKER DO Dec 24, 2024 18:09
[2024-12-24] MEDS: HYDROcodone-ACET 5/325MG TAB PO ONE (18:52)
--- NOTE | 2024-12-24 19:07 | DVH ---
CLINICAL HISTORY: R FLANK PAIN TECHNIQUE: CT of the abdomen and pelvis was performed without IV contrast. This exam was performed ac cording to our departmental dose optimization program. Up-to-date CT equipment and radiation dose red uction techniques are utilized as appropriate. CTDI 9 DLP 467 COMPARISON: None. FINDINGS: Abdomen/Pelvis: The spleen, pancreas, adrenal glands, gallbladder, kidneys, uterus, and bladder are grossly unremarka ble. There is scattered hypoattenuation within the liver. The abdominal aorta is normal in course and caliber. There are no significant atherosclerotic calcifi cations. There is no free intraperitoneal air or fluid. There is no enlarged abdominal pelvic lymph node. There is no bowel wall thickening or dilatation. The appendix is normal. Other: The imaged lower thorax is unremarkable. No acute osseous abnormality is evident. Impression: No acute noncontrast CT abnormality in the abdomen or pelvis. Scattered hypoattenuation within the liver, favor fatty infiltration. Underlying mass lesions are not excluded. Recommend nonemergent liver MRI with and without IV contrast for further evaluation.
[2024-12-24 19:28] LABS: Alkaline Phosphatase 80 U/L (46-116); Anion Gap 9 (5-15); BUN/Creatinine Ratio 11.1 (10.0-20.0); Calcium 9.6 mg/dL (8.7-10.4); Carbon Dioxide 25 mmol/L (20-31); Chloride 106 mmol/L (98-107); Glucose 91 mg/dL (74-106); Lipase 36 U/L (12-53); Potassium 4.1 mmol/L (3.5-5.1); Sodium 140 mmol/L (136-145)
[2024-12-24 19:36] LABS: Alanine Aminotransferase 41 U/L (7-40); Albumin 5.1 g/dL (3.2-4.8); Bilirubin, Total 0.3 mg/dL (0.2-1.0); Blood Urea Nitrogen 8 mg/dL (9-23); Total Protein 8.3 g/dL (5.7-8.2)
[2024-12-24 19:37] LABS: Hematocrit 42.6 % (36.0-46.0); Hemoglobin 14.7 g/dL (12.2-16.2); Mean Corpuscular Hemoglobin 29.8 pg (28.0-32.0); Mean Corpuscular Volume 86.1 fL (80.0-100.0); Nucleated Red Blood Cells % 0.0 %
[2024-12-24 20:05] LABS: Urine Protein, UAD Negative (Negative)
[2024-12-25] VITALS (7 sets, daily range): BP systolic 104–126; BP diastolic 67–71; PULSE 86–92; RESP 16–19; TEMP 97.6–98.4; O2SAT 98–99
[2024-12-25] MEDS ORDERED: ONDANSETRON HCL 4 MG/2 ML VIAL IV PRN (02:00)
[2024-12-25] MEDS ORDERED: ACETAMINOPHEN 325 MG TAB PO PRN (02:00)
--- NOTE | 2024-12-25 02:25 | DVHHPRES ---
History of Present Illness Resident Creating Document: KRISHAN CALIX RESIDENT History of Present Illness Jannet Garcia is a 19-year-old female with past medical history recurrent UTIs who came to the ED with chief complaints of right flank pain since Tuesday, states that it is 8/10 in intensity, radiating to the right upper quadrant, constant, patient denies any dysuria, burning sensation in the urine, hematuria, suprapubic pain, nausea, vomiting, fever, chills, diarrhea, constipation, headaches, dizziness. Patient's pain has worsened since her last visit to the ED. patient says that she had 3 UTIs in November, September, October. Patient was seen in the ED on 11/08/24 for UTI symptoms, US was done, was told she had a 7 cm mass on liver. Patient is not able to follow-up with her PCP due to insurance issues. Patient is admitted for further management. Past surgical history: Denies Family history: Reviewed, noncontributory Personal history: Denies smoking, drinking, drug use Lives with: Family PCP: Dr. Rogers Review of Systems Constitutional: No: Fever, Chills, Sweats, Weakness, Malaise, Other Eyes: No: Pain, Vision change, Conjunctivae inflammation, Eyelid inflammation, Other, Redness ENT: No: Ear pain, Ear discharge, Nose pain, Nose discharge, Nose congestion, Mouth pain, Mouth swelling, Throat pain, Throat swelling, Other Respiratory: No: Cough, Dry, Shortness of breath, SOB with excertion, Wheezing, Hemoptysis, Pleuritic Pain, Sputum, Wheezing, Other Cardiovascular: No: Chest Pain, Palpitations, Orthopnea, Paroxysmal Noc. Dyspnea, Edema, Lt Headedness, Other Gastrointestinal: Abdominal Pain, Other (Right flank pain); No: Nausea, Vomiting, Diarrhea, Constipation, Melena, Hematochezia Genitourinary: No Dysuria, No Frequency, No Incontinence, No Hematuria, No Re tention, No Other Musculoskeletal: No: other, neck pain, shoulder pain, arm pain, back pain, hand pain, leg pain, foot pain Skin: No: Rash, Lesions, Jaundice, Bruising, Other Neurological: No: Weakness, Numbness, Incoordination, Change in speech, Confusion, Seizures, Other Allergies: Coded Allergies: Penicillins (Verified Allergy, Unknown, 05/22/24) Medications Current Medications Medications Dose Ordered Sig/Piter Route Start Time Stop Time Status Last Admin Dose Admin Ondansetron HCl 4 mg Q4HP PRN IV 12/25/24 02:00 Acetaminophen 650 mg Q6HP PRN PO 12/25/24 02:00 Exam Vital Signs Vital Signs Date Time Temp Pulse Resp B/P (MAP) Pulse Ox O2 Delivery O2 Flow Rate FiO2 12/24/24 16:30 98.2 105 16 140/86 100 98.2 Exam General: Patient alert and oriented in person, place and time. Patient following commands. HEENT: Normocephalic, atraumatic, moist mucous membranes Respiratory/pulmonary: Clear lungs bilaterally, vesicular murmurs present in almost all lung villaf[place]te, no associated crackles or wheezes. Cardiovascular: Normal heart sounds S1 and S2 with no associated murmurs Abdomen: Right flank tenderness radiating to right upper quadrant, CVA tenderness present on palpation Extremities: There is no peripheral edema present at the lower extremities. Peripheral Pulses: 3+ Radial (R). 3+ Radial (L). 3+ Dorsalis pedis (R). 3+ Dorsalis pedis(L) Skin: No rashes or pruritus, there is no sacral edema present at this time. Neurological: Intact cranial nerves with no focal neurologic deficits Labs/Xrays Labs Test 12/24/24 18:35 12/24/24 18:07 Range/Units White Blood Count 11.6 H 4.4-10.8 10^3/uL Red Blood Count 4.94 4.0-5.20 10^6/uL Hemoglobin 14.7 12.2-16.2 g/dL Hematocrit 42.6 36.0-46.0 % Mean Corpuscular Volume 86.1 80.0-100.0 fL Mean Corpuscular Hemoglobin 29.8 28.0-32.0 pg Mean Corpuscular Hemoglobin Concent 34.6 32.0-36.0 g/dL Red Cell Distribution Width 13.1 11.8-14.3 % Platelet Count 459 H 140-450 10^3/uL Mean Platelet Volume 7.1 6.9-10.8 fL Neutrophils (%) (Auto) 75.0 37.0-80.0 % Lymphocytes (%) (Auto) 18.8 10.0-50.0 % Monocytes (%) (Auto) 4.4 0.0-12.0 % Eosinophils (%) (Auto) 1.4 0.0-7.0 % Basophils (%) (Auto) 0.4 0.0-2.0 % Neutrophils # (Auto) 8.7 H 1.6-8.6 10 ^3/uL Lymphocytes # (Auto) 2.2 0.4-5.4 10 ^3/uL Monocytes # (Auto) 0.5 0-1.3 10 ^3/uL Eosinophils # (Auto) 0.2 0-0.8 10 ^3/uL Basophils # (Auto) 0.1 0-0.2 10 ^3/uL Nucleated Red Blood Cells 0.0 % Sodium Level 140 136-145 mmol/L Potassium Level 4.1 3.5-5.1 mmol/L Chloride Level 106 98-107 mmol/L Carbon Dioxide Level 25 20-31 mmol/L Anion Gap 9 5-15 Blood Urea Nitrogen 8 L 9-23 mg/dL Creatinine 0.72 0.550-1.02 mg/dL Glomerular Filtration Rate Calc 122 >90 mL/min BUN/Creatinine Ratio 11.1 10.0-20.0 Serum Glucose 91 74-106 mg/dL Lactic Acid Level 1.0 0.4-2.0 mmol/L Calcium Level 9.6 8.7-10.4 mg/dL Total Bilirubin 0.3 0.2-1.0 mg/dL Aspartate Amino Transferase (AST) 33 13-40 U/L Alanine Aminotransferase (ALT) 41 H 7-40 U/L Alkaline Phosphatase 80 46-116 U/L Total Protein 8.3 H 5.7-8.2 g/dL Albumin 5.1 H 3.2-4.8 g/dL Lipase 36 12-53 U/L Urine Color Light-yellow Yellow Urine Clarity Clear Clear Urine pH 5.5 5.0-9.0 Urine Specific [place] 1.016 1.001-1.035 Urine Protein Negative Negative Urine Ketones Negative Negative Urine Blood 2+ H Negative /uL Urine Nitrite Negative Negative Urine Bilirubin Negative Negative Urine Urobilinogen Normal Negative mg/dL Urine Leukocyte Esterase Negative Negative /uL Urine RBC 2 0 - 4 /hpf Urine Microscopic WBC 2 0-5 /HPF Urine Squamous Epithelial Cells Few <5 /hpf Urine Bacteria None seen None Seen /hpf Urine Glucose Normal Normal mg/dL SEPSIS Sepsis Screen Date sepsis recognized/suspect: Dec 24, 2024 Time Sepsis recognized/suspect: 1638 Recent Procedure: No On Antibiotic Therapy: No Respiratory Rate >20: No Heart Rate >90: Yes Temp<36 C (96.8 F) or >38.3 C: No SBP <90 or MAP <65 mmHG: No New Acute Mental Status Change: No Is the patient on CPAP, BIPAP,: No Physician Orders Urine (12/25/24 ) Admit (12/25/24 01:50) Allergies (12/25/24 01:50) Code Status (12/25/24 01:50) Ondansetron Hcl (Zofran) (12/25/24 02:00) Complete Blood Count (12/25/24 04:00) Comprehensive Metabolic Panel (12/25/24 04:00) Condition: Serious (12/25/24 01:50) Acetaminophen Tablet (Tylenol Tablet) (12/25/24 02:00) Bedrest With Bathroom Privileg (12/25/24 01:50) LIVER (12/25/24 01:50) Sodium Chloride 0.9% (12/25/24 02:00) Ceftriaxone 1gm/50ml (Rocephin) (12/25/24 02:00) Urine Bacterial Culture (12/25/24 02:01) Prothrombin Time W/ Inr (12/25/24 02:01) Laboratory Tests Test 12/24/24 18:35 Lactic Acid Level 1.0 mmol/L (0.4-2.0) White Blood Count 11.6 10^3/uL (4.4-10.8) H Medications Medications Dose Ordered Sig/Piter Route Start Time Stop Time Status Last Admin Dose Admin Acetaminophen/ Hydrocodone Bitart 1 tab ONCE ONCE PO 12/24/24 18:15 12/24/24 18:16 DC 12/24/24 18:52 1 TAB Assessment/Plan Assessment/Plan Assessment and plan # pyelonephritis -IV ceftriaxone -IV fluids - Urine Culture ordered, pending # 7 cm mass on liver - GI consulted, pending - abdominal CT showed Scattered hypoattenuation within the liver, favor fatty infiltration. - liver US : Several ill-defined hypoechoic lesions within the right hepatic lobe measure up to 7.8 x 7.4 x 6.3 cm. # history of recurrent UTIs - urine culture # Hepatic steatosis. Goals of care addressed with the patient for more than 33 minutes: Full code status Case discussed with Dr. Roberts , patient and nurse Plan discussed with: Patient My Orders Orders - KRISHAN CALIX Procedure Category Date Status Time Urine ED NURSING 12/25/24 Transmitted Admit ADMIT 12/25/24 Transmitted 01:50 Allergies JUAN 12/25/24 In Process 01:50 Code Status CODE 12/25/24 Transmitted 01:50 Ondansetron Hcl PHA 12/25/24 In Process (Zofran) 02:00 Complete Blood Count LAB 12/25/24 Logged 04:00 Comprehensive LAB 12/25/24 Logged Metabolic Panel 04:00 Condition: Serious JUAN 12/25/24 In Process 01:50 Acetaminophen Tablet PHA 12/25/24 In Process (Tylenol Tablet) 02:00 Bedrest With Bathroom JUNA 12/25/24 In Process Privileg 01:50 LIVER US 12/25/24 Logged 01:50 Sodium Chloride 0.9% PHA 12/25/24 In Process 02:00 Ceftriaxone 1gm/50ml PHA 12/25/24 In Process (Rocephin) 02:00 Urine Bacterial JOSE 12/25/24 Logged Culture 02:01 Prothrombin Time W/ LAB 12/25/24 Logged INR 02:01 Date of Service: Dec 25, 2024 Billing Provider: FLIP ROBERTS MD Common Visit Codes: 37435-RCSNTFN INP/OBS CARE (HIGH) Secondary Visit Codes: 46939-[id number] CARE PLAN 30 MINUTES KRISHAN CALIX Dec 25, 2024 02:25
--- NOTE | 2024-12-25 02:46 | DVH ---
INDICATION: liver mass TECHNIQUE: Multiple real-time sonographic images were obtained of the right upper quadrant. COMPARISON: None FINDINGS: The liver demonstrates diffusely increased echotexture. The liver measures 16.3 cm. Several ill-defined hypoechoic lesions within the right hepatic lobe measure up to 7.8 x 7.4 x 6.3 cm. Normal hepatopetal portal flow identified. No evidence of pleural effusion or abdominal ascites. There is no intrahepatic or extrahepatic ductal dilatation. The common duct measures 0.3 cm. The gallbladder is without evidence of stone or sludge. The gallbladder wall measures 0.3 cm and is w ithin normal limits. Negative sonographic george's sign. The right kidney measures 10.9 cm. The right kidney is normal in contour, size, and shape. The echoge nicity is normal. There is no hydronephrosis. The pancreas is not well visualized due to overlying bowel gas. IMPRESSION: 1. Several ill-defined hypoechoic lesions within the right hepatic lobe measure up to 7.8 x 7.4 x 6.3 cm. Nonemergent liver MRI with and without IV contrast recommended for further evaluation. 2. Hepatic steatosis.
[2024-12-25] MEDS: SODIUM CHLORIDE 0.9% 500 ML IV ONE (03:05)
[2024-12-25 05:38] LABS: Hematocrit 38.1 % (36.0-46.0); Hemoglobin 13.1 g/dL (12.2-16.2); Mean Corpuscular Hemoglobin 29.5 pg (28.0-32.0); Mean Corpuscular Volume 86.0 fL (80.0-100.0); Nucleated Red Blood Cells % 0.0 %
[2024-12-25 06:04] LABS: INR 1.06 (0.9-1.15); Prothrombin Time 11.2 sec (9.3-11.8)
[2024-12-25 06:08] LABS: Alanine Aminotransferase 32 U/L (7-40); Alkaline Phosphatase 66 U/L (46-116); Anion Gap 11 (5-15); BUN/Creatinine Ratio 12.1 (10.0-20.0); Blood Urea Nitrogen 7 mg/dL (9-23); Calcium 8.8 mg/dL (8.7-10.4); Carbon Dioxide 23 mmol/L (20-31); Chloride 107 mmol/L (98-107); Glucose 94 mg/dL (74-106); Potassium 3.8 mmol/L (3.5-5.1); Sodium 141 mmol/L (136-145); Total Protein 7.3 g/dL (5.7-8.2)
[2024-12-25 06:09] LABS: Albumin 4.5 g/dL (3.2-4.8); Bilirubin, Total 0.3 mg/dL (0.2-1.0)
[2024-12-25] MEDS ORDERED: GADOTERATE MEG 10 MMOL/20ml INJ (0.5MMOL/ml) IV ONE (12:31)
--- NOTE | 2024-12-25 13:46 | DVHINCON2 ---
GI Consult Consult Note GI consult note Date of Consultation: 12/25/2024 Chief Complaint: Liver mass Referring Physician: Dr. Subramanian H&P: 19-year-old female admitted with complains of right flank pain which started five days ago, pain was 10 on 0-10 scale, still complaining of pain as being 8.0 at this time. Patient denies nausea or vomiting. Last bowel movement yesterday no melena or red blood in stool. Patient denies alcohol use or any other substance abuse Past Medical History: UTIs Past Surgical History: Denies Social History: NO smoking, drinking ETOH and use of illegal drugs. Family History: Noncontributory Review of Systems: Constitutional: no fever, chill, weight loss HEENT: no eye pain, no hearing loss, no oral lesion, no scleral icterus Heart: no chest pain, no chest pressure Lung: no cough, no dyspnea with exertion Abdomen: see HPI Physical exam: General: NAD, AAOX3 Chest: lung [place] clear to auscultation Heart: RRR, no murmur Abdomen: + right flank and right upper quadrant tenderness palpation, +BS Labs: Labs Test 12/25/24 13:00 12/25/24 04:51 12/24/24 18:35 12/24/24 18:07 Range/Units White Blood Count 10.4 4.4-10.8 10^3/uL Red Blood Count 4.43 4.0-5.20 10^6/uL Hemoglobin 13.1 12.2-16.2 g/dL Hematocrit 38.1 # 36.0-46.0 % Mean Corpuscular Volume 86.0 80.0-100.0 fL Mean Corpuscular Hemoglobin 29.5 28.0-32.0 pg Mean Corpuscular Hemoglobin Concent 34.3 32.0-36.0 g/dL Red Cell Distribution Width 13.2 11.8-14.3 % Platelet Count 381 140-450 10^3/uL Mean Platelet Volume 6.9 6.9-10.8 fL Neutrophils (%) (Auto) 73.2 37.0-80.0 % Lymphocytes (%) (Auto) 20.2 10.0-50.0 % Monocytes (%) (Auto) 4.8 0.0-12.0 % Eosinophils (%) (Auto) 1.4 0.0-7.0 % Basophils (%) (Auto) 0.4 0.0-2.0 % Neutrophils # (Auto) 7.6 1.6-8.6 10 ^3/uL Lymphocytes # (Auto) 2.1 0.4-5.4 10 ^3/uL Monocytes # (Auto) 0.5 0-1.3 10 ^3/uL Eosinophils # (Auto) 0.1 0-0.8 10 ^3/uL Basophils # (Auto) 0 0-0.2 10 ^3/uL Nucleated Red Blood Cells 0.0 % Prothrombin Time 11.2 9.3-11.8 sec Prothrombin Time INR 1.06 0.9-1.15 Sodium Level 141 136-145 mmol/L Potassium Level 3.8 3.5-5.1 mmol/L Chloride Level 107 98-107 mmol/L Carbon Dioxide Level 23 20-31 mmol/L Anion Gap 11 5-15 Blood Urea Nitrogen 7 L 9-23 mg/dL Creatinine 0.58 0.550-1.02 mg/dL Glomerular Filtration Rate Calc 132 >90 mL/min BUN/Creatinine Ratio 12.1 10.0-20.0 Serum Glucose 94 74-106 mg/dL Calcium Level 8.8 8.7-10.4 mg/dL Total Bilirubin 0.3 0.2-1.0 mg/dL Aspartate Amino Transferase (AST) 22 13-40 U/L Alanine Aminotransferase (ALT) 32 7-40 U/L Alkaline Phosphatase 66 46-116 U/L Total Protein 7.3 5.7-8.2 g/dL Albumin 4.5 3.2-4.8 g/dL Lactic Acid Level 1.0 0.4-2.0 mmol/L Lipase 36 12-53 U/L Urine Color Light-yellow Yellow Urine Clarity Clear Clear Urine pH 5.5 5.0-9.0 Urine Specific [place] 1.016 1.001-1.035 Urine Protein Negative Negative Urine Ketones Negative Negative Urine Blood 2+ H Negative /uL Urine Nitrite Negative Negative Urine Bilirubin Negative Negative Urine Urobilinogen Normal Negative mg/dL Urine Leukocyte Esterase Negative Negative /uL Urine RBC 2 0 - 4 /hpf Urine Microscopic WBC 2 0-5 /HPF Urine Squamous Epithelial Cells Few <5 /hpf Urine Bacteria None seen None Seen /hpf Urine Glucose Normal Normal mg/dL Imaging: CT abdomen pelvis Impression: No acute noncontrast CT abnormality in the abdomen or pelvis. Scattered hypoattenuation within the liver, favor fatty infiltration. Underlying mass lesions are not excluded. Recommend nonemergent liver MRI with and without IV contrast for further evaluation. Liver ultrasound IMPRESSION: 1. Several ill-defined hypoechoic lesions within the right hepatic lobe measure up to 7.8 x 7.4 x 6.3 cm. Nonemergent liver MRI with and without IV contrast recommended for further evaluation. 2. Hepatic steatosis. Assessment: Abdominal pain Flank pain Liver lesion Abnormal CT finding Plan: -discussed with Dr. Shepherd MRI abdomen with contrast CEA, AFP, CA 19-9, CA 125, CA 27-29 Plan discussed with patient and RN Thank you for this consult Date of Service: Dec 25, 2024 Billing Provider: OSCAR MORENO Common Visit Codes: CONSULT ONLY Consultation Codes: [id number] CONSULT <60MIN OSCAR MORENO Dec 25, 2024 13:46
--- NOTE | 2024-12-25 14:29 | DVHPNRES ---
Progress Note Date Seen: Dec 25, 2024 Resident Creating Document: ESTIVEN WANG RESIDENT Medical Necessity Reason Pt with a Central, PICC or Fol: No Subjective Review of Systems patient is 19 years old female with a history of recurrent UTI came with a complaint of right flank pain that started on Tuesday night, shortness in onset, 8/10, radiating to the right upper quadrant also to the upper back, constant, increased with movement, decreased with pain medication, burning in nature. Patient reported she had recurrent UTI over the past 3 months. Did not any fever, nausea, vomiting or dysuria. Initial lab workup revealed WBC 11.6, platelets 459, urinalysis negative for UTI, chest x-ray no acute abnormality noted. CT abdominal pelvis revealed-Scattered hypoattenuation within the liver, favor fatty infiltration. Underlying mass lesions are not excluded. Liver ultrasound revealed-1. Several ill-defined hypoechoic lesions within the right hepatic lobe measure up to 7.8 x 7.4 x 6.3 cm. Nonemergent liver MRI with and without IV contrast recommended for further evaluation. Hepatic steatosis. Past surgical history: Denies Family history: Reviewed, noncontributory Personal history: Denies smoking, drinking, drug use Lives with: Family patient was seen today at bedside, labs and chart reviewed. Reported pain has improved. Denied any fever or dysuria. MRI of the liver revealed- Multiple liver masses with central scars demonstrating signal characteristics and enhancement characteristics most consistent with benign focal nodular hyperplasia as detailed above. Objective vital signs Vital Sign Date Time Temp Pulse Resp B/P (MAP) Pulse Ox O2 Delivery O2 Flow Rate FiO2 12/25/24 12:57 97.6 88 16 106/69 (81) 98 97.6 12/25/24 04:18 Room Air* 0 21 Total Intake and Output 12/24/24 12/24/24 12/25/24 15:00 23:00 07:00 Intake Total 550 ml Balance 550 ml medications Current Medications Medications Dose Ordered Sig/Piter Route Start Time Stop Time Status Last Admin Dose Admin Ondansetron HCl 4 mg Q4HP PRN IV 12/25/24 02:00 Acetaminophen 650 mg Q6HP PRN PO 12/25/24 02:00 Examination General: Patient alert and oriented in person, place and time. Patient following commands. HEENT: Normocephalic, atraumatic, moist mucous membranes Respiratory/pulmonary: Clear lungs bilaterally, vesicular murmurs present in almost all lung [place], no associated crackles or wheezes. Cardiovascular: Normal heart sounds S1 and S2 with no associated murmurs Abdomen: Right flank tenderness radiating to right upper quadrant, Extremities: There is no peripheral edema present at the lower extremities. Peripheral Pulses: 3+ Radial (R). 3+ Radial (L). 3+ Dorsalis pedis (R). 3+ Dorsalis pedis(L) Skin: No rashes or pruritus, there is no sacral edema present at this time. Neurological: Intact cranial nerves with no focal neurologic deficits laboratory and microbiology Laboratory Tests 12/25/24 04:51 Test 12/25/24 04:51 Range/Units Serum Glucose 94 74-106 mg/dL Problem List/Assessment/Plan Problem List/Assessment/Plan Assessment and plan # intractable right flank pain likely due to pyelonephritis #rule out musculoskeletal pain # hepatic steatosis #Several ill-defined hypoechoic lesions within the right hepatic lobe # focal nodular hyperplasia of the liver -GI consult reviewed and appreciated, - MRI of the liver revealed- Multiple liver masses with central scars demonstrating signal characteristics and enhancement characteristics most consistent with benign focal nodular hyperplasia as detailed above. -gastroenterology ordered CA 27.29, alpha fetoprotein, carcinoembryonic antigen, carbohydrate antigen # history of recurrent UTI # suspected pyelonephritis -CT abdomen not significant for pyelonephritis -urinalysis negative for urinary tract infection Goals of care, Code status ; discussed with >15 minutes PUD prophylaxis: Pantoprazole DVT prophylaxis: Patient ambulating, no indication for DVT prophylaxis Plan discussed with Dr. Mcadams, nursing staff, Total time spent on patient evaluation, chart review, assessment and plan, discussion discussion >35 minutes Plan discussed with: Patient, Other (RN) My Orders My Orders Orders - ESTIVEN WANG Procedure Category Date Status Time Chlamydia/Gc LAB 12/25/24 Logged Amplification 08:23 Regular Diet DIET 12/25/24 Transmitted Breakfast * [facility] [employer] Scientist CONS 12/25/24 Transmitted 10:41 ESTIVEN WANG Dec 25, 2024 14:29
--- NOTE | 2024-12-25 14:57 | DVH ---
CLINICAL HISTORY: 19 years old, Female; liver cyst. Abnormal CT. TECHNIQUE: Multi sequence multi planar MRI images of the abdomen were obtained prior to and after th e uneventful administration of 15 mL Clariscan contrast. COMPARISON: US LIVER on DOS: 12/25/24, CT CT AB PEL WO CON-NO ORAL OR IV on DOS: 12/24/24 FINDINGS: There are multiple liver masses, which are isointense to slightly hyperintense to the live r parenchyma on the T2 weighted images with hyperintense central scar, demonstrating mild postcontras t enhancement on arterial phase and venous phase images. The lesions demonstrate a central scar with hypo enhancement on the arterial and venous phase images with central artery visualized, and retaine d contrast enhancement of the central scar on the delayed images, most consistent with focal nodular hyperplasia. The largest lesion is in the right hepatic lobe measuring approximately 8.[address] dimension. A lesion in the posterior right hepatic lobe demonstrates bulging/exophytic component e xtending beyond the posteromedial capsule of the liver and measures up to 4.1 cm.A lesion in the cent ral aspect of the liver involving portions of the right and left hepatic lobes measures up to 6.5 cm in greatest dimension. No gallstones visualized in the gallbladder on MRI. No biliary ductal dilatation. The spleen, pancrea s, adrenal glands, and kidneys are unremarkable. No abdominal aortic aneurysm. No other abnormality i dentified on MRI. IMPRESSION: Multiple liver masses with central scars demonstrating signal characteristics and enhance ment characteristics most consistent with benign focal nodular hyperplasia as detailed above.
--- NOTE | 2024-12-25 15:35 | DVHPN2 ---
Progress Note - Dictate Date Seen: Dec 25, 2024 Medical Necessity Reason Pt with a Central, PICC or Fol: No Subjective No new complaints, patient is seen at bedside She is resting comfortably and abdominal pain has improved Patient is tolerating a regular diet vital signs Vital Sign Date Time Temp Pulse Resp B/P (MAP) Pulse Ox O2 Delivery O2 Flow Rate FiO2 12/25/24 12:57 97.6 88 16 106/69 (81) 98 97.6 12/25/24 04:18 Room Air* 0 21 Total Intake and Output 12/24/24 12/24/24 12/25/24 15:00 23:00 07:00 Intake Total 550 ml Balance 550 ml medications Current Medications Medications Dose Ordered Sig/Piter Route Start Time Stop Time Status Last Admin Dose Admin Ondansetron HCl 4 mg Q4HP PRN IV 12/25/24 02:00 Acetaminophen 650 mg Q6HP PRN PO 12/25/24 02:00 objective General: NAD, AAOX3 Chest: lung [place] clear to auscultation Heart: RRR, no murmur Abdomen: Soft nontender obese with no hepatosplenomegaly Extremities without clubbing cyanosis or edema laboratory and microbiology Laboratory Tests 12/25/24 04:51 Test 12/25/24 04:51 Range/Units Serum Glucose 94 74-106 mg/dL MRI of the abdomen with contrast CLINICAL HISTORY: 19 years old, Female; liver cyst. Abnormal CT. TECHNIQUE: Multi sequence multi planar MRI images of the abdomen were obtained prior to and after the uneventful administration of 15 mL Clariscan contrast. COMPARISON: US LIVER on DOS: 12/25/24, CT CT AB PEL WO CON-NO ORAL OR IV on DOS: 12/24/24 FINDINGS: There are multiple liver masses, which are isointense to slightly hyperintense to the liver parenchyma on the T2 weighted images with hyperintense central scar, demonstrating mild postcontrast enhancement on arterial phase and venous phase images. The lesions demonstrate a central scar with hypo enhancement on the arterial and venous phase images with central artery visualized, and retained contrast enhancement of the central scar on the delayed images, most consistent with focal nodular hyperplasia. The largest lesion is in the right hepatic lobe measuring approximately 8.[address] dimension. A lesion in the posterior right hepatic lobe demonstrates bulging/exophytic component extending beyond the posteromedial capsule of the liver and measures up to 4.1 cm.A lesion in the central aspect of the liver involving portions of the right and left hepatic lobes measures up to 6.5 cm in greatest dimension. No gallstones visualized in the gallbladder on MRI. No biliary ductal dilatation. The spleen, pancreas, adrenal glands, and kidneys are unremarkable. No abdominal aortic aneurysm. No other abnormality identified on MRI. IMPRESSION: Multiple liver masses with central scars demonstrating signal characteristics and enhancement characteristics most consistent with benign focal nodular hyperplasia as detailed above. Problems(with codes): (1) Focal nodular hyperplasia of liver (2) Right upper quadrant pain (3) Liver mass Prognosis Plan Patient was given reassurance Liver masses likely benign condition with multiple areas of focal nodular hyperplasia Patient had prior to history of taking control pills, now she is on a Depo shot She was advised to avoid control pills Outpatient follow up with me in 4-6 weeks for ongoing GI management and continued observation I will review tumor markers as an outpatient Once again thank you for allowing me to participate in the care of this patient Plan discussed with: Patient, Other (Dr Subramanian) RISSA HO MD Dec 25, 2024 15:35
[2024-12-25] MEDS: KETOROLAC TROMETH 30 MG/ML 1ML VIAL IV ONE (23:00)
[2024-12-26 01:00] VITALS: BP 101/59; PULSE 98; RESP 20; TEMP 98.5; O2SAT 98
[2024-12-26 05:00] VITALS: BP 95/60; PULSE 78; RESP 19; TEMP 97.8; O2SAT 97
[2024-12-26 06:35] LABS: Hematocrit 41.1 % (36.0-46.0); Hemoglobin 14.0 g/dL (12.2-16.2); Mean Corpuscular Hemoglobin 29.3 pg (28.0-32.0); Mean Corpuscular Volume 85.9 fL (80.0-100.0); Nucleated Red Blood Cells % 0.1 %
--- NOTE | 2024-12-26 06:35 | DVHDSRES ---
Discharge Summary Date of Admission Resident Creating Document: ESTIVEN WANG RESIDENT Dec 25, 2024 at 01:50 Date of Discharge: Dec 26, 2024 Admitting Diagnosis Suspected pyelonephritis Labs/Diagnostic Data: Laboratory Results Test 12/26/24 05:54 12/25/24 13:00 12/25/24 04:51 12/24/24 18:35 Carcinoembryonic Antigen < 0.50 ng/mL (<=5.0) Eosinophils (%) (Auto) 1.4 % (0.0-7.0) Eosinophils # (Auto) 0.1 10 ^3/uL (0-0.8) Basophils # (Auto) 0 10 ^3/uL (0-0.2) Nucleated Red Blood Cells 0.0 % Prothrombin Time 11.2 sec (9.3-11.8) Prothrombin Time INR 1.06 (0.9-1.15) Sodium Level 141 mmol/L (136-145) Potassium Level 3.8 mmol/L (3.5-5.1) Chloride Level 107 mmol/L (98-107) Carbon Dioxide Level 23 mmol/L (20-31) Anion Gap 11 (5-15) Blood Urea Nitrogen 7 mg/dL (9-23) Creatinine 0.58 mg/dL (0.550-1.02) Glomerular Filtration Rate Calc 132 mL/min (>90) BUN/Creatinine Ratio 12.1 (10.0-20.0) Serum Glucose 94 mg/dL (74-106) Calcium Level 8.8 mg/dL (8.7-10.4) Total Bilirubin 0.3 mg/dL (0.2-1.0) Aspartate Amino Transferase (AST) 22 U/L (13-40) Alanine Aminotransferase (ALT) 32 U/L (7-40) Alkaline Phosphatase 66 U/L (46-116) Total Protein 7.3 g/dL (5.7-8.2) Albumin 4.5 g/dL (3.2-4.8) Lactic Acid Level 1.0 mmol/L (0.4-2.0) Lipase 36 U/L (12-53) Test 12/24/24 18:07 Urine Color Light-yellow (Yellow) Urine Clarity Clear (Clear) Urine pH 5.5 (5.0-9.0) Urine Specific [place] 1.016 (1.001-1.035) Urine Protein Negative (Negative) Urine Ketones Negative (Negative) Urine Blood 2+ /uL (Negative) Urine Nitrite Negative (Negative) Urine Bilirubin Negative (Negative) Urine Urobilinogen Normal mg/dL (Negative) Urine Leukocyte Esterase Negative /uL (Negative) Urine RBC 2 /hpf (0 - 4) Urine Microscopic WBC 2 /HPF (0-5) Urine Squamous Epithelial Cells Few /hpf (<5) Urine Bacteria None seen /hpf (None Seen) Urine Glucose Normal mg/dL (Normal) Other Laboratory Tests 12/25/24 04:51 Brief Hx & Hospital Course: patient is 19 years old female with a history of recurrent UTI came with a complaint of right flank pain that started on Tuesday night, shortness in onset, 11/18, radiating to the right upper quadrant also to the upper back, constant, increased with movement, decreased with pain medication, burning in nature. Patient reported she had recurrent UTI over the past 3 months. Did not any fever, nausea, vomiting or dysuria. Initial lab workup revealed WBC 11.6, platelets 459, urinalysis negative for UTI, chest x-ray no acute abnormality noted. CT abdominal pelvis revealed-Scattered hypoattenuation within the liver, favor fatty infiltration. Underlying mass lesions are not excluded. Liver ultrasound revealed-1. Several ill-defined hypoechoic lesions within the right hepatic lobe measure up to 7.8 x 7.4 x 6.3 cm. Nonemergent liver MRI with and without IV contrast recommended for further evaluation. Hepatic steatosis. MRI of the liver revealed- Multiple liver masses with central scars demonstrating signal characteristics and enhancement characteristics most consistent with benign focal nodular hyperplasia as detailed above. Serum carcinoembryonic antigen<.5, AFP<1.8, CA 19.9-16. Patient is seen by Gastroenterology, conservative management. Gastroenterology recommended to follow up outpatient. Patient is being discharged home in hemodynamically stable condition. Patient with advised to follow up with the primary care physician in 1-2 weeks and to follow up with the telephone supervisor in 2-3 weeks for further evaluation of hepatic lesion. Operations or Procedures [address] [address] Ph: [phone] DIAGNOSTIC IMAGING Diagnostic Imaging Report : [id number] Signed PATIENT: MAGDALENA QUINONES ACCT: [id number] UNIT: [id number] : 2005 LOC: ER ROOM / BED: / AGE / SEX: 19 / F ADM STATUS: REG ER SERVICE 1807 ORDERING PHYSICIAN: MIYA BAKER DO PROCEDURE(s): ABPL - CT AB PEL WO CON-NO ORAL OR IV REASON: R FLANK PAIN ORDER NUMBER(s): [id number], ACCESSION NUMBER(s): [id number] CLINICAL HISTORY: R FLANK PAIN TECHNIQUE: CT of the abdomen and pelvis was performed without IV contrast. This exam was performed according to our departmental dose optimization program. Up-to-date CT equipment and radiation dose reduction techniques are utilized as appropriate. CTDI 9 DLP 467 COMPARISON: None. FINDINGS: Abdomen/Pelvis: The spleen, pancreas, adrenal glands, gallbladder, kidneys, uterus, and bladder are grossly unremarkable. There is scattered hypoattenuation within the liver. The abdominal aorta is normal in course and caliber. There are no significant atherosclerotic calcifications. There is no free intraperitoneal air or fluid. There is no enlarged abdominal pelvic lymph node. There is no bowel wall thickening or dilatation. The appendix is normal. Other: The imaged lower thorax is unremarkable. No acute osseous abnormality is evident. Impression: No acute noncontrast CT abnormality in the abdomen or pelvis. Scattered hypoattenuation within the liver, favor fatty infiltration. Underlying mass lesions are not excluded. Recommend nonemergent liver MRI with and without IV contrast for further evaluation. ATED BY: ARYAN DO MD DICTATED DATE/TIME: 12/24/241903 SIGNED BY: ARYAN DO MD SIGNED DATE/TIME: 12/24/241903 CC: [place] [address] Ph: [phone] DIAGNOSTIC IMAGING Diagnostic Imaging Report : [id number] Signed PATIENT: MAGDALENA QUINONES ACCT: [id number] UNIT: [id number] : 2005 LOC: OVERFLOW ROOM / BED: 1010-ER / A AGE / SEX: 19 / F ADM STATUS: ADM IN SERVICE 0150 ORDERING PHYSICIAN: KRISHAN CALIX PROCEDURE(s): LIVUS - LIVER REASON: liver mass ORDER NUMBER(s): [id number], ACCESSION NUMBER(s): [id number] INDICATION: liver mass TECHNIQUE: Multiple real-time sonographic images were obtained of the right upper quadrant. COMPARISON: None FINDINGS: The liver demonstrates diffusely increased echotexture. The liver measures 16.3 cm. Several ill-defined hypoechoic lesions within the right hepatic lobe measure up to 7.8 x 7.4 x 6.3 cm. Normal hepatopetal portal flow identified. No evidence of pleural effusion or abdominal ascites. There is no intrahepatic or extrahepatic ductal dilatation. The common duct measures 0.3 cm. The gallbladder is without evidence of stone or sludge. The gallbladder wall measures 0.3 cm and is within normal limits. Negative sonographic george's sign. The right kidney measures 10.9 cm. The right kidney is normal in contour, size, and shape. The echogenicity is normal. There is no hydronephrosis. The pancreas is not well visualized due to overlying bowel gas. IMPRESSION: 1. Several ill-defined hypoechoic lesions within the right hepatic lobe measure up to 7.8 x 7.4 x 6.3 cm. Nonemergent liver MRI with and without IV contrast recommended for further evaluation. 2. Hepatic steatosis. ATED BY: JEROME BAÑUELOS MD DICTATED DATE/TIME: 12/25/24242 SIGNED BY: JEROME BAÑUELOS MD SIGNED DATE/TIME: 12/25/24242 CC: [place] [address] Ph: [phone] DIAGNOSTIC IMAGING Diagnostic Imaging Report : [id number] Signed PATIENT: MAGDALENA QUINONES ACCT: [id number] UNIT: [id number] : 2005 [facility]GE / SEX: 19 / F ADM STATUS: ADM IN SERVICE 3662 ORDERING PHYSICIAN: OSCAR MORENO PROCEDURE(s): MRABWWO - MRI ABDOMEN W AND WO REASON: ORDER NUMBER(s): [id number], ACCESSION NUMBER(s): [id number] CLINICAL HISTORY: 19 years old, Female; liver cyst. Abnormal CT. TECHNIQUE: Multi sequence multi planar MRI images of the abdomen were obtained prior to and after the uneventful administration of 15 mL Clariscan contrast. COMPARISON: US LIVER on DOS: 12/25/24, CT CT AB PEL WO CON-NO ORAL OR IV on DOS: 12/24/24 FINDINGS: There are multiple liver masses, which are isointense to slightly hyperintense to the liver parenchyma on the T2 weighted images with hyperintense central scar, demonstrating mild postcontrast enhancement on arterial phase and venous phase images. The lesions demonstrate a central scar with hypo enhancement on the arterial and venous phase images with central artery visualized, and retained contrast enhancement of the central scar on the delayed images, most consistent with focal nodular hyperplasia. The largest lesion is in the right hepatic lobe measuring approximately 8.[address] dimension. A lesion in the posterior right hepatic lobe demonstrates bulging/exophytic component extending beyond the posteromedial capsule of the liver and measures up to 4.1 cm.A lesion in the central aspect of the liver involving portions of the right and left hepatic lobes measures up to 6.5 cm in greatest dimension. No gallstones visualized in the gallbladder on MRI. No biliary ductal dilatation. The spleen, pancreas, adrenal glands, and kidneys are unremarkable. No abdominal aortic aneurysm. No other abnormality identified on MRI. IMPRESSION: Multiple liver masses with central scars demonstrating signal characteristics and enhancement characteristics most consistent with benign focal nodular hyperplasia as detailed above. ATED BY: BONI MARS DO DICTATED DATE/TIME: 12/25/241454 SIGNED BY: BONI MARS DO SIGNED DATE/TIME: 12/25/241454 CC: Condition at Discharge: Stable Final Diagnosis/Problems List # intractable right flank pain likely due to musculoskeletal pain # ruled out acute pyelonephritis # hepatic steatosis #Several ill-defined hypoechoic lesions within the right hepatic lobe # focal nodular hyperplasia of the liver # history of recurrent UTI Discharge Disposition: Home Discharge Instruct/Medications Diet: Regular Activity: No Restrictions, As Tolerated Follow Up/Referral: Please follow up with the primary care physician in 1-2 weeks Please follow up with the telephone supervisor Dr. Shepherd in 2-3 weeks for further evaluation and care Medications: Tylenol 650 mg q.6h PRN for 3 days Scheduled PRN Acetaminophen (Tylenol), 650 MG PO every 6 hours PRN Discharge Statement: "Patient was advised to return to the ER or call 911 if any headaches, dizziness, shortness of breath, chest pain, abdominal pain, bleeding, fevers, or worsening of medical condition. Patient was counseled about treatment plan, medications, possible side effects, patientverbalized understanding. All questions were answered to the best of my ability. This discharge took greater then 30 minutes in planning, reviewing documentation, counseling the patient, and discussing with other team members." ASSESSMENT ASSESSMENT Assessment ESTIVEN WANG RESIDENT Dec 26, 2024 06:35
[2024-12-26 08:00] VITALS: PULSE 70; RESP 16; O2SAT 98
[2024-12-26 08:49] VITALS: BP 101/77; PULSE 79; RESP 18; TEMP 97.9; O2SAT 99
[2024-12-26] MEDS ORDERED: ACE650RS PO (09:00)
[2024-12-26 10:10] VITALS: BP 122/73; PULSE 70; RESP 16; TEMP 97.8; O2SAT 98
--- NOTE | 2024-12-26 14:06 | DVHPN2 ---
Progress Note - Dictate Date Seen: Dec 26, 2024 (Late entryPatient seen at 9:00 a.m.) Medical Necessity Reason Pt with a Central, PICC or Fol: No Subjective No new complaints, patient is seen at bedside She is resting comfortably and abdominal pain has improved Patient is tolerating a regular diet vital signs Vital Sign Date Time Temp Pulse Resp B/P (MAP) Pulse Ox O2 Delivery O2 Flow Rate FiO2 12/26/24 10:10 97.8 70 16 98 12/26/24 08:49 101/77 (85) 12/26/24 08:00 Room Air* 0 21 Total Intake and Output 12/25/24 12/25/24 12/26/24 15:00 23:00 07:00 Intake Total 400 ml 400 ml Balance 400 ml 400 ml objective General: NAD, AAOX3 Chest: lung [place] clear to auscultation Heart: RRR, no murmur Abdomen: Soft nontender obese with no hepatosplenomegaly Extremities without clubbing cyanosis or edema laboratory and microbiology Laboratory Tests 12/26/24 05:54 12/25/24 04:51 Test 12/25/24 04:51 Range/Units Serum Glucose 94 74-106 mg/dL Problems(with codes): (1) Focal nodular hyperplasia of liver (2) Right upper quadrant pain (3) Liver mass Prognosis Plan Patient was given reassurance ; for markers are negative Liver masses likely benign condition with multiple areas of focal nodular hyperplasia Patient had prior to history of taking control pills, now she is on a Depo shot She was advised to avoid control pills Outpatient follow up with me in 4-6 weeks for ongoing GI management and continued observation Discharge planning is in progress Plan discussed with: Patient, Other (Dr Subramanian) RISSA HO MD Dec 26, 2024 14:06
== END 2024-12-26 11:20 | disposition home or self-care (01) | DRG 443 ==
LOC: EEVIPCON 16:27 → ER 16:27 → OVERFLOW 12-25 01:50 → CENTRAL 12-25 15:53
PROVIDERS: ADMIT Internal Medicine Geriatric Medicine; ATTEND Internal Medicine Geriatric Medicine
DX: K76.89 Other specified diseases of liver (principal); K76.0 Fatty (change of) liver, not elsewhere classified; Z79.899 Other long term (current) drug therapy
CPT/HCPCS: 36415; 74176; 74183; 76705; 80053; 81001; 82105; 82378; 83605; 83690; 85025; 85610; 86300; 86301; 87081; 87086; G0378; J1885

== ENCOUNTER 2025-04-01 10:23 | Emergency (ER) | payer BC ==
[~2025-04-01] VITALS: Ht 147.3 cm; Wt 73.0 kg
[~2025-04-01 10:23] MED LIST changes: +ACE650RS PO; -CEPH500C PO; -HYDR50TA32 PO; -IBUP1TAB5 PO; -PER60TP TOP; -TRIA0.02 TOP
--- NOTE | 2025-04-01 11:31 | DVH ---
CHEST RADIOGRAPH Indication: sob/cp Technique: Frontal and lateral view of the chest was obtained Comparison: XY CHEST PORTABLE on DOS: 10/05/24 FINDINGS: Lines and Tubes: None Lungs: Increased interstital prominence. This may represent pulmonary vascular congestion and/or viral pneumonia. Pleura: No effusion. No pneumothorax. Cardiomediastinal contours: Unremarkable Bones: Unremarkable IMPRESSION: Increased interstital prominence. This may represent pulmonary vascular congestion and/or viral pneumonia.
--- NOTE | 2025-04-01 11:39 | ED.PDOC ---
History of Present Illness HPI Comments 20 y/o obese F presents with c/c of nonproductive cough, shortness of breath, and chest wall pain x2 days. No endorsed nausea, vomiting, congestion, fever, chills, or further associated symptoms. Patient denies having any cardiac or pertinent family history. 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 Chief Complaint: Shortness of Breath Time Seen by MD: 10:50 Primary Care Provider: UNKNOWN Reviewed Notes: Nurses Notes, Medications, Allergies Allergies: Coded Allergies: Penicillins (Verified Allergy, Unknown, 05/22/24) Home Meds Active Scripts Azithromycin (Zithromax) 500 Mg Tab, 1 TAB PO DAILY, #5 TAB Prov:JAMARI TIPTON MD 04/01/25 Acetaminophen (Tylenol) 650 Mg Rc, 650 MG PO every 6 hours PRN for 5 Days, #14 % Prov:ESTIVEN WANG RESIDENT 12/26/24 Information Source: Patient Mode of Arrival: Ambulatory Severity: Moderate Past Medical History PAST MEDICAL HISTORY: Denies Surgical History: [employer] History: No Pertinent [employer]ER History Family History Family History: Reviewed,noncontributory to illness Social History Smoker: Non-Smoker Alcohol: Denies ETOH Use Drugs: Denies Drug Use Lives In: Home Constitutional: denies: chills, diaphoresis, fatigue, fever, malaise, sweats, weakness, others EENTM: denies: blurred vision, double vision, ear bleeding, ear discharge, ear drainage, ear pain, ear ringing, eye pain, eye redness, hearing loss, mouth pain, mouth swelling, nasal discharge, nose bleeding, nose congestion, nose pain, photophobia, tearing, throat pain, throat swelling, voice changes, others Respiratory: reports: cough, shortness of breath; denies: hemoptysis, orthopnea, SOB at rest, SOB with excertion, stridor, wheezing, others Cardiovascular: reports: chest pain; denies: dizzy spells, diaphoresis, Dyspnea on exertion, edema, irregular heart beat, left arm pain, lightheadedness, palpitations, PND, syncope, others Gastrointestinal: denies: abdomen distended, abdominal pain, blood streaked bowels, constipated, diarrhea, dysphagia, difficulty swallowing, hematemesis, melena, nausea, poor appetite, poor fluid intake, rectal bleeding, rectal pain, vomiting, others Genitourinary: denies: abnormal vagina bleeding, burning, dyspareunia, dysuria, flank pain, frequency, hematuria, incontinence, pain, , vagina discharge, urgency, others Neurological: denies: dizziness, fainting, headache, left sided numbness, left sided weakness, numbness, paresthesia, pre-existing deficit, right sided numbness, right sided weakness, seizure, speech problems, tingling, tremors, weakness, others Musculoskeletal: denies: back pain, gout, joint pain, joint swelling, muscle pain, muscle stiffness, neck pain, others Integumetry: denies: bruises, change in color, change in hair/nails, dryness, laceration, lesions, lumps, rash, wounds, others Allergic/Immunocompromised: denies: Difficulty Healing, Frequent Infections, Hives, Itching, others Hematologic/Lymphatic: denies: anemia, blood clots, easy bleeding, easy bruising, swollen glands, others Endocrine: denies: excessive hunger, excessive sweating, excessive thirst, excessive urination, flushing, intolerance to cold, intolerance to heat, unexplained weight gain, unexplained weight loss, others Psychiatric: denies: anxiety, bipolar disorder, depression, hopeless, panic disorder, schizophrenia, sleepless, suicidal, others Physical Exam General Appearance: No Apparent Distress HEENT: Normal ENT Inspection, Pharynx Normal, TMs Normal Neck: Full Range of Motion, Non-Tender, Normal, Normal Inspection Respiratory: Chest Non-Tender, Lungs Clear, No Accessory Muscle Use, No Respiratory Distress, Normal Breath Sounds Cardiovascular: No Edema, No JVD, No Murmur, No Gallop, Normal Peripheral Pulses, Regular Rate/Rhythm Breast Exam: Deferred Gastrointestinal: No Organomegaly, Non Tender, No Pulsatile Mass, Normal Bowel Sounds, Soft Genitalia: Deferred Pelvic: Deferred Rectal: Deferred Extremities: No calf tenderness, Normal capillary refill, Normal inspection, Normal range of motion, Non-tender, No pedal edema Musculoskeletal : Apperance: Normal Neurologic: Alert, c application developer II-XII nml as Tested, No Motor Deficits, Normal Affect, Normal Mood, No Sensory Deficits Cerebellar Function: Normal Reflexes: Normal Skin: Dry, Normal Color, Warm Lymphatic: No Adenopathy Was a procedure done? Was a procedure done?: No EKG EKG : Pulse Rate (adult): 133 [place]: Normal Cardiac Rhythm: ST Block: None Hypertrophy: None ST: Normal Differential Dx Considerations may include: URI, PNA, viral, AMI, PE, ACS, anxiety, angina, gastritis, GERD, among others X-Ray, Labs, Meds, VS Vital Signs Date Time Temp Pulse Resp B/P (MAP) Pulse Ox O2 Delivery O2 Flow Rate FiO2 04/01/25 12:04 18 Room Air* 0 04/01/25 11:39 133 04/01/25 11:31 97.8 12 131/86 (101) 100 97.8 04/01/25 10:44 Room Air* 0 21 04/01/25 10:40 98.4 127 20 158/94 98 98.4 Lab Test 04/01/25 11:37 Range/Units White Blood Count 9.0 4.4-10.8 10^3/uL Red Blood Count 4.95 4.0-5.20 10^6/uL Hemoglobin 14.7 12.2-16.2 g/dL Hematocrit 42.4 36.0-46.0 % Mean Corpuscular Volume 85.6 80.0-100.0 fL Mean Corpuscular Hemoglobin 29.7 28.0-32.0 pg Mean Corpuscular Hemoglobin Concent 34.8 32.0-36.0 g/dL Red Cell Distribution Width 13.8 11.8-14.3 % Platelet Count 432 140-450 10^3/uL Mean Platelet Volume 7.0 6.9-10.8 fL Neutrophils (%) (Auto) 68.4 37.0-80.0 % Lymphocytes (%) (Auto) 25.3 10.0-50.0 % Monocytes (%) (Auto) 5.0 0.0-12.0 % Eosinophils (%) (Auto) 0.9 0.0-7.0 % Basophils (%) (Auto) 0.4 0.0-2.0 % Neutrophils # (Auto) 6.2 1.6-8.6 10 ^3/uL Lymphocytes # (Auto) 2.3 0.4-5.4 10 ^3/uL Monocytes # (Auto) 0.4 0-1.3 10 ^3/uL Eosinophils # (Auto) 0.1 0-0.8 10 ^3/uL Basophils # (Auto) 0 0-0.2 10 ^3/uL Nucleated Red Blood Cells 0.1 % D-Dimer, Quantitative < 0.19 0.0-0.49 mg/L FEU Sodium Level 140 136-145 mmol/L Potassium Level 3.8 3.5-5.1 mmol/L Chloride Level 104 98-107 mmol/L Carbon Dioxide Level 24 20-31 mmol/L Anion Gap 12 5-15 Blood Urea Nitrogen 7 L 9-23 mg/dL Creatinine 0.68 0.550-1.02 mg/dL Glomerular Filtration Rate Calc 126 >90 mL/min BUN/Creatinine Ratio 10.3 10.0-20.0 Serum Glucose 100 74-106 mg/dL Calcium Level 9.9 8.7-10.4 mg/dL Current Medications Medications (Trade) Dose Ordered Sig/Piter Route Start Time Stop Time Status Last Admin Sodium Chloride 1,000 ml @ 1,000 mls/hr Q1H ONCE IV 04/01/25 11:00 04/01/25 11:59 DC 04/01/25 12:00 PROCEDURE(s): CXR2 - CHEST TWO VIEWS ROUTINE IMPRESSION: Increased interstital prominence. This may represent pulmonary vascular congestion and/or viral pneumonia. The CBC is within normal limits The chemistry panel is within normal limits The patient was given 1 L bolus of normal saline Based on the x-ray the patient is being started....... On Zithromax......... For acute bronchitis The patient will return to the emergency department's condition worsens Images Reviewed?: Images reviewed and evaluated by me Time of 1ST Reevaluation: 11:30 Reevaluation 1ST: Unchanged Time of 2ND Reevaluation: 13:51 Reevaluation 2ND: Improved Patient Education/Counseling: Diagnosis, Treatment, Prognosis, Need For Follow Up Family Education/Counseling: No Family Present SEPSIS Sepsis Screen Date sepsis recognized/suspect: Apr 01, 2025 Time Sepsis recognized/suspect: 1042 Recent Procedure: No On Antibiotic Therapy: No Respiratory Rate >20: No Heart Rate >90: No Temp<36 C (96.8 F) or >38.3 C: No SBP <90 or MAP <65 mmHG: No New Acute Mental Status Change: No Is the patient on CPAP, BIPAP,: No Physician Orders Chest Two Views Routine (04/01/25 10:54) Heplock Iv (04/01/25 10:54) Covid19 Antigen Joycelyn (04/01/25 ) Rapid Influenza A&B (04/01/25 10:54) Vital Signs Date Time Temp Pulse Resp B/P (MAP) Pulse Ox O2 Delivery O2 Flow Rate FiO2 04/01/25 12:04 18 Room Air* 0 21 04/01/25 11:39 133 04/01/25 11:31 97.8 04 01 131/86 (101) 100 97.8 04/01/25 10:44 Room Air* 0 21 04/01/25 10:40 98.4 127 20 158/94 98 98.4 Laboratory Tests Test 04/01/25 11:37 White Blood Count 9.0 10^3/uL (4.4-10.8) Medications Medications Dose Ordered Sig/Piter Route Start Time Stop Time Status Last Admin Dose Admin Sodium Chloride 1,000 ml @ 1,000 mls/hr Q1H ONCE IV 04/01/25 11:00 04/01/25 11:59 DC 04/01/25 12:00 Departure 1 Departure Time of Disposition: 13:51 Impression: Primary Impression: Chest pain with low risk for cardiac etiology Additional Impression: Acute bronchitis Qualified Codes: J20.9 - Acute bronchitis, unspecified Disposition: HOME / SELF CARE / HOMELESS Condition: Stable e-Prescriptions Azithromycin (Zithromax) 500 Mg Tab 1 TAB PO DAILY, #5 TAB Prov: JAMARI TIPTON MD 04/01/25 Discharged With: Self Critical Care Note Critical Care Time?: No Stability Stability form required: No Heart Score Heart Score: Heart Score Response (Comments) Value History Slightly Suspicious 0 EKG Normal 0 Age <45 0 Risk Factors No known risk factors 0 Troponin Normal limit 0 Total 0 I personally scribed for JAMARI TIPTON MD ([email or web address]) on 04/01/25 at 11:39. Electronically submitted by Rafa Paez ([email or web address]). I personally scribed for JAMARI TIPTON MD ([email or web address]) on 04/01/25 at 11:40. Electronically submitted by Rafa Paez ([email or web address]). JAMARI TIPTON MD Apr 01, 2025 11:39
[2025-04-01 11:59] LABS: Hematocrit 42.4 % (36.0-46.0); Hemoglobin 14.7 g/dL (12.2-16.2); Mean Corpuscular Hemoglobin 29.7 pg (28.0-32.0); Mean Corpuscular Volume 85.6 fL (80.0-100.0); Nucleated Red Blood Cells % 0.1 %
[2025-04-01] MEDS: SODIUM CHLORIDE 0.9% 1,000 ML IV ONE (12:00)
[2025-04-01 12:04] VITALS: RESP 18
[2025-04-01 12:08] LABS: Chloride 104 mmol/L (98-107); Potassium 3.8 mmol/L (3.5-5.1); Sodium 140 mmol/L (136-145)
[2025-04-01 12:09] LABS: Anion Gap 12 (5-15); Calcium 9.9 mg/dL (8.7-10.4); Carbon Dioxide 24 mmol/L (20-31)
[2025-04-01 12:14] LABS: BUN/Creatinine Ratio 10.3 (10.0-20.0); Glucose 100 mg/dL (74-106)
[2025-04-01 12:24] LABS: Blood Urea Nitrogen 7 mg/dL (9-23)
[2025-04-01] MEDS ORDERED: AZIT500T PO (13:52)
[2025-04-01 14:13] VITALS: BP 128/78; PULSE 72; RESP 16; TEMP 98.6; O2SAT 96
[2025-04-01 14:29] LABS: COVID19 ANTIGEN SOFIA FIA NEGATIVE (NEGATIVE)
== END 2025-04-01 14:15 | disposition home or self-care (01) ==
LOC: ER 10:23 → EEVIPCON 10:23 → ER 14:15
DX: R07.89 Other chest pain (principal); J20.9 Acute bronchitis, unspecified; Z88.0 Allergy status to penicillin; Z98.890 Other specified postprocedural states; Z79.899 Other long term (current) drug therapy; Z20.822 Contact with and (suspected) exposure to COVID-19
CPT/HCPCS: 36415; 71046; 80048; 85025; 85379; 87426; 87804; 96360; 96361; 99284; J7030